=== PATIENT | male | born 1950 | race Hispanic/Latino ===

== ENCOUNTER 2018-12-14 15:56 | Emergency (ER) | payer MEDICARE ==
[2018-12-14] MEDS ORDERED: CLEOCIN PO ONE (18:48)
--- NOTE | 2018-12-14 19:01 | Emergency Department Report ---
HPI - General Chief Complaint: Wound/Laceration Time Seen by Provider: 12/14/18 17:46 - HPI HPI: 68-year-old male presents to the emergency department from dialysis with complaint of elevated blood pressure and lower extremity wounds and redness. The patient presents with some cultures from 12/10/18 from some drainage from his left leg that came back showing moderate gram-positive cocci in pairs, MRSA and beta hemolytic streptococci group B. the patient has a history of end-stage renal disease on hemodialysis on Monday/Monday/Monday, non-insulin dependent diabetes, previous CVA, blindness, hyperlipidemia and hypertension. The patient says that he has "whitecoat syndrome" and anxiety that causes his elevated blood pressure. He says that he takes Catapres as needed and is on labetalol. 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 Morales and his primary care physician is Patel Escobar. ED Past Medical Hx - Past Medical History Previous Medical History?: Yes Hx Hypertension: Yes Hx Heart Attack/AMI: No Hx Congestive Heart Failure: Yes Hx Diabetes: Yes (pill control) Hx Renal Disease: Yes (MON/MON/MON) Additional medical history: Blind - Surgical History Past Surgical History?: Yes Additional Surgical History: fistula placement LEFT Arm - Social History Smoking Status: Never Smoker Substance Use Type: None - Medications Home Medications: Home Medications Medication Instructions Recorded Confirmed Last Taken Type Clopidogrel Bisulfate [Plavix] 75 mg PO DAILY 11/11/13 10/17/16 10/16/16 History 75mg Glimepiride 2 mg PO DAILY 11/11/13 10/17/16 10/16/16 History 2mg Simvastatin 10 mg PO DAILY 11/11/13 10/17/16 10/16/16 History 10mg Torsemide 20 mg PO BID 11/11/13 10/17/16 10/16/16 History 20mg Tramadol HCl 50 mg PO PRN PRN 11/11/13 10/17/16 10/16/16 History 50mg metOLazone [Metolazone] 2.5 mg PO TID 11/11/13 10/17/16 10/16/16 History 2.5mg Labetalol HCl [Trandate TAB] 300 mg PO BID 12/16/13 10/17/16 10/16/16 History 300mg Albuterol Sulfate [Proair Hfa] 2 puff INHALATION QID 12/18/13 10/17/16 10/16/16 History 2 Ergocalciferol [Vitamin D2] 50,000 unit PO 2XW 12/18/13 10/17/16 10/16/16 History 43438 units Omeprazole 20 mg PO BID 12/18/13 10/17/16 10/16/16 History 20mg Clindamycin [Clindamycin CAP] 300 mg PO Q6H #28 capsule 12/14/18 Unknown Rx ED Review of Systems ROS: Stated complaint: MRSA INFECTION Other details as noted in HPI Comment: All other systems reviewed and negative Constitutional: denies: chills, fever Eyes: denies: eye pain, eye discharge ENT: denies: ear pain, throat pain Respiratory: denies: cough, shortness of breath Cardiovascular: denies: chest pain, palpitations Gastrointestinal: denies: abdominal pain, vomiting Genitourinary: denies: dysuria, discharge Musculoskeletal: denies: back pain, arthralgia Skin: rash, lesions Neurological: denies: headache, weakness Physical Exam - Physical Exam Vital Signs: Vital Signs 12/14/18 12/14/18 12/14/18 17:50 17:52 18:15 Pulse Rate 85 86 Respiratory 18 Rate Blood Pressure 199/78 218/80 207/73 [Right] O2 Sat by Pulse 98 Oximetry 12/14/18 18:27 Pulse Rate Respiratory 18 Rate Blood Pressure [Right] O2 Sat by Pulse 98 Oximetry Physical Exam: GENERAL: The patient is well-developed well-nourished. HEENT: Normocephalic. Atraumatic. Patient has moist mucous membranes. NECK: Supple. Trachea is midline. CHEST/LUNGS: Clear to auscultation. There is no respiratory distress noted. HEART/CARDIOVASCULAR: Regular. There is no tachycardia. There is no obvious murmur. ABDOMEN: Abdomen is soft, nontender. Patient has normal bowel sounds. There is no abdominal distention. SKIN: Skin is patient has some erythema and a ulcerated wound to the left distal anterior tib-fib. He also has some mild erythema with small red papules to the same area of the right distal tib-fib. NEURO: The patient is awake, alert, and oriented. The patient is cooperative. The patient has no focal neurologic deficits. The patient has normal speech. MUSCULOSKELETAL: There is no tenderness or deformity. There is no evidence of acute injury. There is a dialysis fistula to the left upper extremity. ED Course Vital Signs 12/14/18 12/14/18 12/14/18 17:50 17:52 18:15 Pulse Rate 85 86 Respiratory 18 Rate Blood Pressure 199/78 218/80 207/73 [Right] O2 Sat by Pulse 98 Oximetry 12/14/18 18:27 Pulse Rate Respiratory 18 Rate Blood Pressure [Right] O2 Sat by Pulse 98 Oximetry ED Medical Decision Making - Medical Decision Making The patient presents from dialysis for evaluation of lower extremity wounds and hypertension. He also presents with some positive wound cultures from 4 days ago that show MRSA and beta lactamase group B. Both of these bacteria appears susceptible to clindamycin. The patient says that he has a history of hypertension and his blood pressure will usually come down when he treats his anxiety. He took one of his own lorazepam and did remain awake and alert but his blood pressure did come down to a more reasonable level. He is still due to take his labetalol this evening. The patient would not allow an IV to be placed and would not allow any blood to be drawn. He has had some recent blood work done through dialysis. Patient did not have any fever or tachycardia and appears lower suspicion for any systemic infection. Patient will be given a prescription for the clindamycin and has been given a referral for wound care. We discussed the reasons and/or symptoms for which she should return to emergency department immediately. He understands and agrees to the plan. - Differential Diagnosis cellulitis, abscess, ulcer Critical Care Time: No Critical care attestation.: If time is entered above; I have spent that time in minutes in the direct care of this critically ill patient, excluding procedure time. ED Disposition Clinical Impression: MRSA cellulitis, ESRD (end stage renal disease) on dialysis HTN (hypertension) Qualifiers: Hypertension type: essential hypertension Qualified Code(s): I10 - Essential (primary) hypertension Disposition: - TO HOME OR SELFCARE Is pt being admited?: No Condition: Stable Instructions: Methicillin Resistant Staphylococcus Aureus (ED), Cellulitis (ED), Hypertension (ED) Additional Instructions: Please follow-up with your primary care physician in the next few days. Continue with your normal dialysis regimen. I have given you a referral for the local wound care clinic. Take the antibiotics as prescribed. Return to the emergency Department with any worsening of your symptoms, development of a fever, worsening of the infection, or any acute distress. Prescriptions: Clindamycin [Clindamycin CAP] 300 mg PO Q6H #28 capsule Referrals: [facility] [Outside] - [facility] PATEL PINEDO JR, MD [Staff Physician] - 2-3 Days KAYLENE MORALES MD [Staff Physician] - 2-3 Days
[2018-12-14 19:30] VITALS: BP 180/70
== END 2018-12-14 19:45 | disposition home or self-care (01) ==
LOC: ED 15:56
DX: L03.116 Cellulitis of left lower limb (principal); A49.02 Methicillin resistant Staphylococcus aureus infection, unspecified site; E11.22 Type 2 diabetes mellitus with diabetic chronic kidney disease; I13.2 Hypertensive heart and chronic kidney disease with heart failure and with stage 5 chronic kidney disease, or end stage renal disease; I50.9 Heart failure, unspecified; N18.6 End stage renal disease; Z99.2 Dependence on renal dialysis

== ENCOUNTER 2019-01-14 17:10 | Inpatient (IN) | payer MEDICARE ==
[2019-01-14 19:26] LABS: Basophils # (Auto) 0.1 K/mm3 (0.0-0.1); Basophils % (Auto) 1.5 % (0.0-1.8); Eosinophils # (Auto) 0.2 K/mm3 (0.0-0.4); Eosinophils % (Auto) 3.2 % (0.0-4.3); Hematocrit 34.8 % (35.5-45.6); Hemoglobin 11.4 gm/dl (11.8-15.2); Lymphocytes # (Auto) 1.2 K/mm3 (1.2-5.4); Lymphocytes % (Auto) 16.6 % (13.4-35.0); Mean Corpuscular HGB Conc 33 % (32-34); Mean Corpuscular Volume 87 fl (84-94); Monocytes # (Auto) 0.6 K/mm3 (0.0-0.8); Monocytes % (Auto) 8.7 % (0.0-7.3); Platelet Count 170 K/mm3 (140-440); Red Blood Count 4.01 M/mm3 (3.65-5.03); Red Cell Distribution Width 15.4 % (13.2-15.2)
[2019-01-14 19:47] LABS: Calcium 9.2 mg/dL (8.4-10.2)
[2019-01-14 21:34] LABS: INR 0.98 (0.87-1.13)
[2019-01-14 21:35] LABS: Partial Thromboplastin Time 31.9 Sec. (24.2-36.6); Thrombin Time 16.1 Sec. (15.1-19.6)
--- NOTE | 2019-01-14 22:10 | Cat Scan Report ---
PROCEDURE: CT HEAD/BRAIN WO CON TECHNIQUE: Computerized tomography of the head was performed without contrast material. CT DOSE LENGTH PRODUCT: mGycm HISTORY: right sided weakness/numb x 6 days COMPARISONS: None . FINDINGS: Skull and scalp: Normal . Paranasal sinuses: Normal . Ventricles and subarachnoid spaces: There is mild central and cortical atrophy. There is no hydrocep halus or asymmetry. . Cerebrum: No evidence of hemorrhage, acute infarction or mass . There is an old left thalamic infarc t. There is chronic deep white matter ischemic gliosis. Cerebellum and brainstem: No evidence of hemorrhage, acute infarction or mass . There is an old lacu roosevelt infarct defect in the citlalli. Vasculature: Normal . Left globe is atrophic and calcified. IMPRESSION: There is mild central and cortical atrophy. There is no hydrocephalus or asymmetry. . There is an old left thalamic infarct. There is chronic deep white matter ischemic gliosis. There is an old lacunar infarct defect in the citlalli. There is no hemorrhage, edema, mass, mass effect or midline shift. There is no evidence of acute infa rction. This document is electronically signed by Sherman Randall MD., January 14 2019 10:08:04 PM ET
--- NOTE | 2019-01-14 22:45 | Cat Scan Report ---
PROCEDURE: CT CERVICAL SPINE WO CON TECHNIQUE: Computerized tomography of the cervical spine was performed from the skull base to T1 wit hout contrast material. CT DOSE LENGTH PRODUCT: mGycm HISTORY: rigth sided weakness/numb x 6 days COMPARISONS: None . FINDINGS: Skull base and foramen magnum are intact. C1-2: No significant abnormality . C2-3: No significant abnormality . C3-4: No significant abnormality . C4-5: No significant abnormality . C5-6: No significant abnormality . C6-7: There is narrowing of the disc space. . C7-T1: No significant abnormality . Fractures: None . Other: Soft tissues are unremarkable. . IMPRESSION: There is no acute traumatic injury. . This document is electronically signed by Sherman Randall MD., January 14 2019 10:44:08 PM ET
--- NOTE | 2019-01-15 00:31 | Emergency Department Report ---
ED Neuro Deficit HPI - General Chief Complaint: Hypoglycemia Stated Complaint: LOW BLOOD SUGAR Time Seen by Provider: 01/14/19 19:33 Source: patient, EMS, old records reviewed Mode of arrival: Stretcher Limitations: No Limitations - History of Present Illness Initial Comments: 68-year-old male with a past medical history of end-stage medicine is currently on dialysis, diabetes (glimepiride every morning), hypertension, blind, and multiple CVAs/TIAs in the past persistent hospital with hypoglycemia in stroke symptoms. Patient developed hypoglycemia after completion of his dialysis with Accu-Chek of 47. Given oral glucose with improvement. Patient states he typically does not eat prior to dialysis but his glucose doesn't typically drop. Patient has history of multiple CVAs in the denies residual deficits. Since October 11 (5 days ago) patient has had right sided weakness and numbness to the point where he is unable to ambulate. Pt has had several falls since onset. He was concerned about a stroke that did not come to the hospital. His family members state that his speech is pretty much the same. Patient denies pain, fever, or shortness of breath. Delivery And Installation Subcontractor: Dr. Morales PMD: DR Hou - Related Data Home Medications: Home Medications Medication Instructions Recorded Confirmed Last Taken Clopidogrel Bisulfate [Plavix] 75 mg PO DAILY 11/11/13 10/17/16 10/16/16 75mg Glimepiride 2 mg PO DAILY 11/11/13 10/17/16 10/16/16 2mg Simvastatin 10 mg PO DAILY 11/11/13 10/17/16 10/16/16 10mg Torsemide 20 mg PO BID 11/11/13 10/17/16 10/16/16 20mg Tramadol HCl 50 mg PO PRN PRN 11/11/13 10/17/16 10/16/16 50mg metOLazone [Metolazone] 2.5 mg PO TID 11/11/13 10/17/16 10/16/16 2.5mg Labetalol HCl [Trandate TAB] 300 mg PO BID 12/16/13 10/17/16 10/16/16 300mg Albuterol Sulfate [Proair Hfa] 2 puff INHALATION QID 12/18/13 10/17/16 10/16/16 2 Ergocalciferol [Vitamin D2] 50,000 unit PO 2XW 12/18/13 10/17/16 10/16/16 72652 units Omeprazole 20 mg PO BID 12/18/13 10/17/16 10/16/16 20mg ALPRAZolam [Xanax] 1 mg PO 01/15/19 Unknown Calcium Carbonate 500 mg 01/15/19 Unknown Clopidogrel [Plavix] 01/15/19 Unknown Zolpidem [Ambien] 10 mg PO QHS 01/15/19 01/15/19 Unknown Allergies/Adverse Reactions: Allergies Allergy/AdvReac Type Severity Reaction Status Date / Time No Known Allergies Allergy Verified 11/12/13 07:33 ED Review of Systems ROS: Stated complaint: LOW BLOOD SUGAR Other details as noted in HPI Comment: All other systems reviewed and negative ED Past Medical Hx - Past Medical History Hx Hypertension: Yes Hx Heart Attack/AMI: No Hx Congestive Heart Failure: Yes Hx Diabetes: Yes (pill control) Hx Renal Disease: Yes (MON/WED/FRI) Additional medical history: Blind - Surgical History Additional Surgical History: fistula placement LEFT Arm - Social History Smoking Status: Never Smoker Substance Use Type: None - Medications Home Medications: Home Medications Medication Instructions Recorded Confirmed Last Taken Type Clopidogrel Bisulfate [Plavix] 75 mg PO DAILY 11/11/13 10/17/16 10/16/16 History 75mg Glimepiride 2 mg PO DAILY 11/11/13 10/17/16 10/16/16 History 2mg Simvastatin 10 mg PO DAILY 11/11/13 10/17/16 10/16/16 History 10mg Torsemide 20 mg PO BID 11/11/13 10/17/16 10/16/16 History 20mg Tramadol HCl 50 mg PO PRN PRN 11/11/13 10/17/16 10/16/16 History 50mg metOLazone [Metolazone] 2.5 mg PO TID 11/11/13 10/17/16 10/16/16 History 2.5mg Labetalol HCl [Trandate TAB] 300 mg PO BID 12/16/13 10/17/16 10/16/16 History 300mg Albuterol Sulfate [Proair Hfa] 2 puff INHALATION QID 12/18/13 10/17/16 10/16/16 History 2 Ergocalciferol [Vitamin D2] 50,000 unit PO 2XW 12/18/13 10/17/16 10/16/16 History 69255 units Omeprazole 20 mg PO BID 12/18/13 10/17/16 10/16/16 History 20mg ALPRAZolam [Xanax] 1 mg PO 01/15/19 Unknown History Calcium Carbonate 500 mg 01/15/19 Unknown History Clopidogrel [Plavix] 01/15/19 Unknown History Zolpidem [Ambien] 10 mg PO QHS 01/15/19 01/15/19 Unknown History ED Neuro Physical Exam - General Limitations: No Limitations General appearance: alert Suspected Stroke: Yes - NIHSS Assessment Interval: Baseline 1a. Level of Consciousness: alert/keenly responsive 1b. LOC Questions: answers both correctly 1c. LOC Commands: performs tasks correctly 2. Best Gaze: normal (blind) 3. Visual: bilateral hemianopia (blind chronic) 4. Facial Palsy: normal symmetrical movement 5b. Motor Arm Right: drift 5a. Motor Arm Left: no drift 6a. Motor Leg Left: drift 6b. Motor Leg Right: some gravity effort 7. Limb Ataxia: absent 8. Sensory: mild/moderate sensory loss (decreased right arm and leg) 9. Best Language: no aphasia 10. Dysarthria: normal 11. Extinction/Inattention: no abnormality Total Score: 8 Stroke Severity: Moderate Stroke - Other Other exam information: General: No limitations, patient is alert in no acute distress Head exam: Atraumatic, normocephalic Eyes exam: blind ENT: Moist mucous membrane, normal oropharynx Neck exam: Normal inspection, full range of motion, no meningismus nontender Respiratory exam: Clear to auscultation bilateral, no wheezes, rales, crackles Cardiovascular: Normal rate and rhythm Abdomen: Soft, nondistended, and nontender, with normal bowel sounds, no rebound, or guarding Extremity: Full range of motion normal inspection no deformity, left arm dialysis access with + thrill Back: Normal Inspection, full range of motion, no tenderness Neurologic: Alert, oriented x3, see NIHSS Psychiatric: normal affect, normal mood Skin: Warm, dry, intact ED Course Vital Signs 01/14/19 01/14/19 01/14/19 18:20 18:24 18:30 Temperature 98.1 F Pulse Rate 66 Respiratory 18 Rate Blood Pressure 201/63 201/63 O2 Sat by Pulse 98 98 99 Oximetry 01/14/19 01/14/19 01/14/19 18:46 19:00 19:16 Temperature Pulse Rate Respiratory Rate Blood Pressure 210/68 175/68 195/72 O2 Sat by Pulse 99 99 96 Oximetry 01/14/19 01/14/19 01/14/19 19:30 19:45 19:53 Temperature Pulse Rate 64 Respiratory 16 20 Rate Blood Pressure 136/76 200/70 O2 Sat by Pulse 98 100 98 Oximetry - Consultations Consultation #1: 01/15/19 00:[address] Morales (not discussed with him). stable nephro status at this time. - Lab Data Result diagrams: 01/14/19 19:16 01/14/19 19:16 Lab Results 01/14/19 01/14/19 01/14/19 Range/Units 18:38 19:16 19:16 WBC 7.3 (4.5-11.0) K/mm3 RBC 4.01 (3.65-5.03) M/mm3 Hgb 11.4 L (11.8-15.2) gm/dl Hct 34.8 L (35.5-45.6) % MCV 87 (84-94) fl MCH 28 (28-32) pg MCHC 33 (32-34) % RDW 15.4 H (13.2-15.2) % Plt Count 170 (140-440) K/mm3 Lymph % (Auto) 16.6 (13.4-35.0) % [place] % (Auto) 8.7 H (0.0-7.3) % Eos % (Auto) 3.2 (0.0-4.3) % Baso % (Auto) 1.5 (0.0-1.8) % Lymph # 1.2 (1.2-5.4) K/mm3 [place] # 0.6 (0.0-0.8) K/mm3 Eos # 0.2 (0.0-0.4) K/mm3 Baso # 0.1 (0.0-0.1) K/mm3 Seg Neutrophils % 70.0 (40.0-70.0) % Seg Neutrophils # 5.1 (1.8-7.7) K/mm3 PT (12.2-14.9) Sec. INR (0.87-1.13) APTT (24.2-36.6) Sec. Thrombin Time (15.1-19.6) Sec. Sodium 141 (137-145) mmol/L Potassium 3.9 (3.6-5.0) mmol/L Chloride 97.9 L (98-107) mmol/L Carbon Dioxide 30 (22-30) mmol/L Anion Gap 17 mmol/L BUN 19 (9-20) mg/dL Creatinine 5.2 H (0.8-1.5) mg/dL Estimated GFR 11 ml/min BUN/Creatinine Ratio 4 % Glucose 120 H (75-100) mg/dL POC Glucose 131 H (70-105) Calcium 9.2 (8.4-10.2) mg/dL 01/14/19 01/14/19 Range/Units 21:09 21:13 WBC (4.5-11.0) K/mm3 RBC (3.65-5.03) M/mm3 Hgb (11.8-15.2) gm/dl Hct (35.5-45.6) % MCV (84-94) fl MCH (28-32) pg MCHC (32-34) % RDW (13.2-15.2) % Plt Count (140-440) K/mm3 Lymph % (Auto) (13.4-35.0) % [place] % (Auto) (0.0-7.3) % Eos % (Auto) (0.0-4.3) % Baso % (Auto) (0.0-1.8) % Lymph # (1.2-5.4) K/mm3 [place] # (0.0-0.8) K/mm3 Eos # (0.0-0.4) K/mm3 Baso # (0.0-0.1) K/mm3 Seg Neutrophils % (40.0-70.0) % Seg Neutrophils # (1.8-7.7) K/mm3 PT 13.6 (12.2-14.9) Sec. INR 0.98 (0.87-1.13) APTT 31.9 (24.2-36.6) Sec. Thrombin Time 16.1 (15.1-19.6) Sec. Sodium (137-145) mmol/L Potassium (3.6-5.0) mmol/L Chloride (98-107) mmol/L Carbon Dioxide (22-30) mmol/L Anion Gap mmol/L BUN (9-20) mg/dL Creatinine (0.8-1.5) mg/dL Estimated GFR ml/min BUN/Creatinine Ratio % Glucose (75-100) mg/dL POC Glucose 191 H (70-105) Calcium (8.4-10.2) mg/dL - EKG Data -: EKG Interpreted by Ga EKG shows normal: sinus rhythm, axis (qrs 21), QRS complexes (qrsd 95), ST-T waves (no stei/t inv) Rate: normal (66) - Radiology Data Radiology results: report reviewed PROCEDURE: CT CERVICAL SPINE WO CON TECHNIQUE: Computerized tomography of the cervical spine was performed from the skull base to T1 without contrast material. CT DOSE LENGTH PRODUCT: mGycm HISTORY: rigth sided weakness/numb x 6 days COMPARISONS: None . FINDINGS: Skull base and foramen magnum are intact. C1-2: No significant abnormality . C2-3: No significant abnormality . C3-4: No significant abnormality . C4-5: No significant abnormality . C5-6: No significant abnormality . C6-7: There is narrowing of the disc space. . C7-T1: No significant abnormality . Fractures: None . Other: Soft tissues are unremarkable. . IMPRESSION: There is no acute traumatic injury. . PROCEDURE: CT HEAD/BRAIN WO CON TECHNIQUE: Computerized tomography of the head was performed without contrast material. CT DOSE LENGTH PRODUCT: mGycm HISTORY: right sided weakness/numb x 6 days COMPARISONS: None . FINDINGS: Skull and scalp: Normal . Paranasal sinuses: Normal . Ventricles and subarachnoid spaces: There is mild central and cortical atrophy. There is no hydrocephalus or asymmetry. . Cerebrum: No evidence of hemorrhage, acute infarction or mass . There is an old left thalamic infarct. There is chronic deep white matter ischemic gliosis. Cerebellum and brainstem: No evidence of hemorrhage, acute infarction or mass . There is an old lacunar infarct defect in the citlalli. Vasculature: Normal . Left globe is atrophic and calcified. IMPRESSION: There is mild central and cortical atrophy. There is no hydrocephalus or asymmetry. . There is an old left thalamic infarct. There is chronic deep white matter ischemic gliosis. There is an old lacunar infarct defect in the citlalli. There is no hemorrhage, edema, mass, mass effect or midline shift. There is no evidence of acute infarction. - Medical Decision Making pt is on plavix at home asa given in ed glucose stable after pt ate with baseline [place] plan to admit to hospitalist for cva workup Nephro consult ordered but renal status stable at this time - Differential Diagnosis ich, stroke, infection, diabetes med reaction Critical Care Time: No Critical care attestation.: If time is entered above; I have spent that time in minutes in the direct care of this critically ill patient, excluding procedure time. ED Disposition Clinical Impression: Right sided weakness, Type II diabetes mellitus, HTN (hypertension), ESRD (end stage renal disease) on dialysis, Hypoglycemic episode in patient with diabetes mellitus Disposition: OP ADMIT IP TO THIS HOSP Is pt being admited?: Yes Condition: Stable Instructions: Hypertension (ED) Time of Disposition: 00:33 (Dr Ricardo/hosp)
[2019-01-15] MEDS ORDERED: ASPIRIN PO ONE (01:01)
[2019-01-15] MEDS ORDERED: ZOFRAN IV PRN (04:11)
--- NOTE | 2019-01-15 05:03 | History and Physical Report ---
CHIEF COMPLAINT: Right-sided weakness and also right-sided numbness. HISTORY OF PRESENT ILLNESS: The patient is a 68-year-old male with past medical history of blindness, diabetes mellitus, hypertension, end-stage renal disease, on dialysis. cerebrovascular accident and TIAs, presenting with right-sided weakness and difficulty with ambulation. The patient stated that he started having these symptoms 6 days prior to presentation and did not come to the hospital. The patient developed low blood sugar prior to having dialysis and was also feeling weak with numbness on the right side and was sent over for evaluation. There is no history of chest pain. No history of shortness of breath. No history of dizziness. PAST MEDICAL HISTORY: Pertinent for hypertension, congestive heart failure, diabetes mellitus, end-stage renal disease, on dialysis, blindness. PAST SURGICAL HISTORY: Pertinent for dialysis, fistula placement on the left upper extremity. FAMILY HISTORY: Noncontributory. SOCIAL HISTORY: The patient does not smoke, does not drink alcohol and does not use illicit drugs. MEDICATIONS: The patient is on albuterol inhaler 2 puffs q.i.d. Also, the patient is on alprazolam 1 mg by mouth, frequency unknown. The patient is on calcium carbonate 500 mg by mouth, frequency unknown, clopidogrel 75 mg by mouth daily, ergocalciferol 50,000 units by mouth twice daily. The patient is also on glimepiride 2 mg by mouth daily, labetalol 300 mg by mouth twice daily as well as metolazone 2.5 mg by mouth 3 times daily, omeprazole 20 mg by mouth twice daily, simvastatin 20 mg by mouth daily. The patient is also on torsemide 20 mg by mouth twice daily, tramadol 50 mg by mouth as needed, zolpidem 10 mg by mouth every night as needed for insomnia. ALLERGIES: There are no known drug allergies. REVIEW OF SYSTEMS: CONSTITUTIONAL: There is no fever, no chills, no diaphoresis. HEENT: There is no headache or sore throat. CARDIOVASCULAR SYSTEM: There is no chest pain or orthopnea. RESPIRATORY SYSTEM: There is no shortness of breath or cough. GASTROINTESTINAL SYSTEM: There is no nausea, no vomiting, no abdominal pain, diarrhea or constipation. NEUROLOGIC: Right-sided weakness and numbness noted. No dizziness. No altered mental status. MUSCULOSKELETAL SYSTEM: There is no joint pain or swelling. DERMATOLOGICAL SYSTEM: There is no skin rash or itching. GENITOURINARY SYSTEM: There is history of dysuria, but no hematuria or flank pain. Rest of system review is normal. PHYSICAL EXAMINATION: GENERAL: At the time of exam, the patient was found to be alert, oriented x 3, and not in acute distress. VITAL SIGNS: Shows temperature of 98.1 degrees Fahrenheit, pulse of 66, respirations 18, blood pressure initially was registered as 201/63, and subsequently, blood pressure went down to as low as 136/76. HEENT: Showed pupils to be equal, round, reactive to light and accommodating. Extraocular muscles are intact. NECK: Supple with no JVD or carotid bruit. CARDIOVASCULAR: Showed normal first and second heart sounds with no gallops or murmurs. RESPIRATORY SYSTEM: Show good air entry on both sides of the lungs with no abnormal breath sounds. GASTROINTESTINAL SYSTEM: Show abdomen to be full, soft, nontender with no organomegaly or rigidity. NEUROLOGICAL: Shows weakness of the right upper and lower limbs with muscle strength of grade 3/6 on the right grade 5/6 on the left. Sensory function is intact. MUSCULOSKELETAL SYSTEM: Show no joint swelling or tenderness. DERMATOLOGICAL SYSTEM: Show no skin rash. GENITOURINARY SYSTEM: Showing no costovertebral angle tenderness. PERTINENT LABORATORY DATA AND IMAGING STUDIES: The patient had CT of the cervical spine done that shows no acute lesion and the patient's CT of the head without contrast shows mild central and cortical atrophy with no hydrocephalus or any asymmetry. There is finding of old thalamic infarct and also finding of chronic deep white matter ischemic gliosis. There is also finding of an old lacunar infarct in the citlalli, but there is no hemorrhage, edema, mass effect, or midline shift and there is no evidence of any acute infarction. Lab results, the patient has CBC done with slightly decreased hemoglobin of 11.4 and a slightly decreased hematocrit of 34.8 with normal MCV with CBC differential showing elevated monocyte count of 8.7%. The patient's coagulation studies were unremarkable and chemistry show elevated creatinine of 5.2 with normal BUN, which is consistent with the patient's end-stage renal disease, on dialysis. Rest of chemistry was unremarkable. DIAGNOSES: 1. Right-sided weakness and numbness. 2. End-stage renal disease, on dialysis. PLAN OF CARE: 1. The patient will be admitted to telemetry. 2. The patient will have MRI of the brain without contrast done this morning. 3. The patient will have bilateral carotid Doppler done this morning as well as 2D echo done this morning. 4. The patient will continue the nephrology consult with Dr. Morales requested by the Emergency Room physician and will have Neurology consult with Dr. Amilcar Abdullahi this morning because of right-sided weakness. 5. The patient will be on sequential compressive device as per DVT prophylaxis and will be n.p.o. until swallow test is passed. 6. The patient will have physical therapy consult for evaluation and treatment. 7. The patient will be on aspirin 325 mg by mouth daily and will be on IV Zofran 4 mg every 8 hours for nausea and vomiting as well as Tylenol 650 mg by mouth every 4 hours for fever and headache. JOB# [id number] OCN/NTS
--- NOTE | 2019-01-15 10:09 | Magnetic Resonance Report ---
MRI OF THE BRAIN WITHOUT CONTRAST: HISTORY: Right sided weakness PROCEDURE: Multiplanar, multisequence MR imaging of the brain without IV contrast was performed. FINDINGS: Compared to a CT head dated 01/14/19. MRI demonstrates a 5 mm focus of diffusion restriction in the left side of the citlalli on diffusion image 11. No additional areas of diffusion restriction are identified. Mild diffuse volume loss and moderate nonspecific chronic white matter changes are identified. Chronic lacunar infarcts in the lateral left thalamus and 3 tiny chronic lacunar infarcts in the citlalli are also noted. No evidence for hemorrhage, mass or extra axial fluid collection. The midline structures are central. The basal cisterns are patent. Normal ventricular size. No sellar abnormality is detected. The left eye is atrophic. Orbital contents are within normal limits otherwise. The visualized paranasal sinuses and mastoid air cells are well aerated. IMPRESSION: 5 mm subacute lacunar infarct in the left citlalli. Chronic findings as outlined above.
--- NOTE | 2019-01-15 10:26 | Consultation ---
History of Present Illness - Reason for Consult Consult date: 01/15/19 end stage renal disease - History of Present Illness Very pleasant 68-year-old male well known to us at our dialysis clinic who hasn't past medical history significant for end-stage renal disease in the setting of diabetes hypertension who has been on chronic hemodialysis for the past 5 years who currently dialyzes at the [facility], presented to the emergency department with right-sided weakness that had been progressively getting worse over the past 4-5 days. He was brought in by his grandson who had noticed the symptoms of the right-sided weakness. Patient underwent a CT scan of the head as well as CT scan of the C-spine without any acute abnormalities noted. It it shows evidence of previous and old infarcts. Patient typically dialyzes on a Monday and Monday schedule. His last hemodialysis session was Monday. Labs noted and there is no acute necessity for hemodialysis today. He just came back from an echocardiogram and we are pending reports at this time. He still states that he has the residual right-sided weakness with only mild improvement since admission. Despite this he is adamant that he wants to go home later today. Past History Past Medical History: diabetes, ESRD, heart failure, hypertension, hyperlipidemia Past Surgical History: Other (left upper extremity AV fistula placement. ) Social history: no significant social history, lives with family Family history: diabetes, hypertension Medications and Allergies Allergies Allergy/AdvReac Type Severity Reaction Status Date / Time No Known Allergies Allergy Verified 11/12/13 07:33 Home Medications Medication Instructions Recorded Confirmed Last Taken Type Clopidogrel Bisulfate [Plavix] 75 mg PO DAILY 11/11/13 10/17/16 10/16/16 History 75mg Glimepiride 2 mg PO DAILY 11/11/13 10/17/16 10/16/16 History 2mg Simvastatin 20 mg PO DAILY 11/11/13 10/17/16 10/16/16 History 10mg Torsemide 20 mg PO BID 11/11/13 01/15/19 10/16/16 History 20mg Tramadol HCl 50 mg PO PRN PRN 11/11/13 10/17/16 10/16/16 History 50mg metOLazone [Metolazone] 2.5 mg PO TID 01/13/14 12/19/16 12/18/16 History 2.5mg Labetalol HCl [Trandate TAB] 300 mg PO BID 12/16/13 01/15/19 10/16/16 History 300mg Albuterol Sulfate [Proair Hfa] 2 puff INHALATION QID 12/18/13 10/17/16 10/16/16 History 2 Ergocalciferol [Vitamin D2] 50,000 unit PO 2XW 12/18/13 01/15/19 10/16/16 History 81868 units Omeprazole 20 mg PO BID 12/18/13 10/17/16 10/16/16 History 20mg ALPRAZolam [Xanax] 1 mg PO 01/15/19 Unknown History Calcium Carbonate 500 mg 01/15/19 Unknown History Clopidogrel [Plavix] 01/15/19 Unknown History Zolpidem [Ambien] 10 mg PO QHS 01/15/19 01/15/19 Unknown History Active Meds: Active Medications Acetaminophen (Tylenol) 650 mg PO Q4H PRN PRN Reason: Pain, Mild (1-3) Alprazolam (Xanax) 0.5 mg PO NOW ONE Stop: 01/15/19 11:01 Aspirin (Aspirin) 325 mg PO QDAY JIE Ondansetron HCl (Zofran) 4 mg IV Q8H PRN PRN Reason: Nausea And Vomiting Review of Systems All systems: negative Constitutional: fatigue, weakness Neurological: numbness Exam - Vital Signs Vital signs: Vital Signs Pulse Ox 98 01/14/19 18:20 - General Appearance General appearance: well-nourished, appears stated age EENT: ATNC Neck: Present: neck supple, trachea midline Respiratory: Clear to Ascultation, Normal Exam Heart: regular, S1S2 Gastrointestinal: Present: normal, normoactive bowel sounds Integumentary: warm and dry Neurologic: upper extremity weakness Psychiatric: mood/affect appropriate, cooperative Results - Lab Results 01/14/19 19:16 01/14/19 19:16 Most recent lab results Calcium 9.2 mg/dL (8.4-10.2) 01/14/19 19:16 Assessment and Plan - Patient Problems (1) ESRD (end stage renal disease) on dialysis Current Visit: Yes Status: Chronic Plan to address problem: We'll continue patient on Monday and Monday hemodialysis schedule. No acute indications for hemodialysis today. (2) Right sided weakness Current Visit: Yes Status: Acute Plan to address problem: CT scan of the head as well as CT scan of the C-spine noted. Echocardiogram was done this morning and report is pending. Will follow-up with results. (3) HTN (hypertension) Current Visit: Yes Status: Chronic Plan to address problem: Continue patient on current home regimen and will continue to monitor. (4) Type II diabetes mellitus Current Visit: Yes Status: Chronic Plan to address problem: Diabetes management per primary team. (5) Secondary hyperparathyroidism (of renal origin) Current Visit: Yes Status: Chronic Plan to address problem: There have patient continue home phosphate binder regimen. (6) Anemia in CKD (chronic kidney disease) Current Visit: Yes Status: Chronic Qualifiers: Chronic kidney disease stage: on chronic dialysis Qualified Code(s): N18.6 - End stage renal disease; D63.1 - Anemia in chronic kidney disease; Z99.2 - Dependence on renal dialysis Plan to address problem: Current hemoglobin levels are at goal. There is no acute needs for NED therapy at this time. We'll continue to monitor
[2019-01-15] MEDS: ASPIRIN PO SCH (10:54)
[2019-01-15] MEDS ORDERED: XANAX PO ONE (11:00)
--- NOTE | 2019-01-15 11:57 | Progress Note ---
Assessment and Plan Assessment and plan: Acute/subacute CVA. Continue CVA protocol. MRI reveals 5 mm subacute lacunar infarct in the left citlalli. Echocardiogram reveals mild concentric left ventricular hypertrophy with an EF of 50-55%. No reports of thrombus. Neurology consultation pending. Hypertension. Continue antihypertensive medications. Diabetes mellitus type 2. Continue Accu-Cheks and sliding scale as well. Anemia of CKD. Current hemoglobin levels are at goal. There is no acute needs for NED therapy at this time. We'll continue to monitor History Interval history: Patient reports improvement in his right-sided weakness. No new complaints. Hospitalist Physical - Constitutional Vitals: Temp Pulse Resp BP Pulse Ox 98.2 F 73 20 172/61 91 01/15/19 11:24 01/15/19 11:24 01/15/19 11:24 01/15/19 11:24 01/15/19 11:24 General appearance: Present: no acute distress, well-nourished - EENT Eyes: Present: PERRL, EOM intact ENT: hearing intact, clear oral mucosa, dentition normal - Neck Neck: Present: supple, normal ROM - Respiratory Respiratory effort: normal Respiratory: bilateral: CTA - Cardiovascular Rhythm: regular Heart Sounds: Present: S1 & S2. Absent: gallop, rub - Extremities Extremities: no ischemia, No edema, Full ROM - Abdominal General gastrointestinal: soft, non-tender, non-distended, normal bowel sounds - Integumentary Integumentary: Present: clear, warm, dry - Neurologic Neurologic: CNII-XII intact, moves all extremities Results - Labs CBC & Chem 7: 01/14/19 19:16 01/14/19 19:16 Labs: Laboratory Last Values WBC 7.3 K/mm3 (4.5-11.0) 01/14/19 19:16 RBC 4.01 M/mm3 (3.65-5.03) 01/14/19 19:16 Hgb 11.4 gm/dl (11.8-15.2) L 01/14/19 19:16 Hct 34.8 % (35.5-45.6) L 01/14/19 19:16 MCV 87 fl (84-94) 01/14/19 19:16 MCH 28 pg (28-32) 01/14/19 19:16 MCHC 33 % (32-34) 03/18/19 19:16 RDW 15.4 % (13.2-15.2) H 01/14/19 19:16 Plt Count 170 K/mm3 (140-440) 01/14/19 19:16 Lymph % (Auto) 16.6 % (13.4-35.0) 01/14/19 19:16 [place] % (Auto) 8.7 % (0.0-7.3) H 01/14/19 19:16 Eos % (Auto) 3.2 % (0.0-4.3) 01/14/19 19:16 Baso % (Auto) 1.5 % (0.0-1.8) 01/14/19 19:16 Lymph # 1.2 K/mm3 (1.2-5.4) 01/14/19 19:16 [place] # 0.6 K/mm3 (0.0-0.8) 01/14/19 19:16 Eos # 0.2 K/mm3 (0.0-0.4) 01/14/19 19:16 Baso # 0.1 K/mm3 (0.0-0.1) 01/14/19 19:16 Seg Neutrophils % 70.0 % (40.0-70.0) 01/14/19 19:16 Seg Neutrophils # 5.1 K/mm3 (1.8-7.7) 01/14/19 19:16 PT 13.6 Sec. (12.2-14.9) 01/14/19 21:09 INR 0.98 (0.87-1.13) 01/14/19 21:09 APTT 31.9 Sec. (24.2-36.6) 01/14/19 21:09 Thrombin Time 16.1 Sec. (15.1-19.6) 01/14/19 21:09 Sodium 141 mmol/L (137-145) 01/14/19 19:16 Potassium 3.9 mmol/L (3.6-5.0) 01/14/19 19:16 Chloride 97.9 mmol/L (98-107) L 01/14/19 19:16 Carbon Dioxide 30 mmol/L (22-30) 01/14/19 19:16 Anion Gap 17 mmol/L 01/14/19 19:16 BUN 19 mg/dL (9-20) 01/14/19 19:16 Creatinine 5.2 mg/dL (0.8-1.5) H 01/14/19 19:16 Estimated GFR 11 ml/min 01/14/19 19:16 BUN/Creatinine Ratio 4 % 01/14/19 19:16 Glucose 120 mg/dL (75-100) H 01/14/19 19:16 POC Glucose 82 (70-105) 01/15/19 08:07 Calcium 9.2 mg/dL (8.4-10.2) 01/14/19 19:16 Active Medications - Current Medications Current Medications: Generic Name Dose Route Start Last Admin Trade Name Freq PRN Reason Stop Dose Admin Acetaminophen 650 mg 01/15/19 04:11 Tylenol PO Q4H PRN Pain, Mild (1-3) Aspirin 325 mg 01/15/19 10:00 01/15/19 10:54 Aspirin PO Not Given QDAY [facility] Ondansetron HCl 4 mg 01/15/19 04:11 Zofran IV Q8H PRN Nausea And Vomiting
[2019-01-15] MEDS: PRAVACHOL PO SCH (21:15)
--- NOTE | 2019-01-15 21:15 | Consultation ---
History of Present Illness Consult date: 01/15/19 Requesting physician: DENISE FORD Reason for Consult: right sided weakness Chief complaint: right sided weakness History of present illness: This 68-year-old white male had noted right sided weakness for a week and perhaps starting with an episode of glucose of 47. He had tingling and numbness of his right face, arm and leg starting last Monday then fell getting out of his shower 2 nights ago. He has no vision in either eye, with scarring on the left and failed attempt at some type of stents on the right. No trouble swallowing with recurrent symptoms but notes he has to talk out of the left side of his mouth. He has not been checking his blood pressure at home. He has been on labetalol 300 mg twice a day which he has not been getting here. He has been told to take clonidine as needed for spikes of blood pressure which he does if he gets watering of his eyes. Blood pressure here has been high. MRI showed punctate left dorsal citlalli infarct on diffusion and on ADC map, no Chiari, GRE changes in the mid citlalli, holes and increased FLAIR signal in the citlalli from old strokes, old right cerebellar lacune as a dark spot on FLAIR, periventricular increased FLAIR signal and peripheral lacunes. Literature in PubMed indicates one can get diffusion positive changes with apparent stroke-type symptoms just from low glucose though it is unclear as to how quickly that would reverse itself. Echocardiogram is limited in terms of the bubble study so PFO cannot be ruled out. Past History Past Medical History: diabetes, ESRD, heart failure, hypertension, hyperlipidemia, stroke, sarcoidosis (says he is had 3 strokes in the past), ot her (injury hitting his head on the side glass of his car window in 2009 leading to left eye injury and delayed right eye injury) Past Surgical History: Other (left upper extremity AV fistula placement. 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 denies: smoking, alcohol abuse, prescription drug abuse, IV drug use Family history: diabetes (maternal grandmother), hypertension, other (no epilepsy). denies: stroke Medications and Allergies Allergies Allergy/AdvReac Type Severity Reaction Status Date / Time No Known Allergies Allergy Verified 11/12/13 07:33 Home Medications Medication Instructions Recorded Confirmed Last Taken Type Clopidogrel Bisulfate [Plavix] 75 mg PO DAILY 11/11/13 10/17/16 10/16/16 History 75mg Glimepiride 2 mg PO DAILY 11/11/13 10/17/16 10/16/16 History 2mg Simvastatin 20 mg PO DAILY 11/11/13 10/17/16 10/16/16 History 10mg Torsemide 20 mg PO BID 11/11/13 01/15/19 10/16/16 History 20mg Tramadol HCl 50 mg PO PRN PRN 11/11/13 10/17/16 10/16/16 History 50mg metOLazone [Metolazone] 2.5 mg PO TID 11/11/13 10/17/16 10/16/16 History 2.5mg Labetalol HCl [Trandate TAB] 300 mg PO BID 12/16/13 01/15/19 10/16/16 History 300mg Albuterol Sulfate [Proair Hfa] 2 puff INHALATION QID 12/18/13 10/17/16 10/16/16 History 2 Ergocalciferol [Vitamin D2] 50,000 unit PO 2XW 12/18/13 01/15/19 10/16/16 History 49356 units Omeprazole 20 mg PO BID 12/18/13 10/17/16 10/16/16 History 20mg ALPRAZolam [Xanax] 1 mg PO 01/15/19 Unknown History Calcium Carbonate 500 mg 01/15/19 Unknown History Clopidogrel [Plavix] 01/15/19 Unknown History Zolpidem [Ambien] 10 mg PO QHS 01/15/19 01/15/19 Unknown History Active Meds: Active Medications Acetaminophen (Tylenol) 650 mg PO Q4H PRN PRN Reason: Pain, Mild (1-3) Aspirin (Aspirin) 325 mg PO QDAY [facility] Last Admin: 01/15/19 10:54 Dose: Not Given Documented by: Ondansetron HCl (Zofran) 4 mg IV Q8H PRN PRN Reason: Nausea And Vomiting Pravastatin Sodium (Pravachol) 40 mg PO QHS [facility] Review of Systems All systems: negative (no headaches, some orthostatic dizziness at times, no snoring or memory problems but some peripheral neuropathy of hands and feet) Physical Examination - Vital Signs Vital Signs: Vital Signs Pulse Ox 98 01/14/19 18:20 - Physical Exam Narrative exam: General Appearance: well developed and obese (per BMI) late 60s white male in NAD with obviously opaque left globe. HEENT: atraumatic, normocephalic; no bruits, 2+ Anahy without soreness or induration or enlargement, sclerae nonicteric. Oropharynx pink and moist. Neck: supple, no bruits. Heart: Grade II/ systolic ejection murmur at the pulmonic position but no other extra sounds. Extremities: no clubbing, cyanosis or edema. 2+ dorsalis pedis pulses bilat erally. Neurologic Exam: Mental Status: Awake, alert, oriented X 3, speech is clear, names pen and ballpoint of pen, and abstracts well. Names President and gives Chanelle as Associate Director Finance after Tomy as prompt, serial 7's intact, no right-left confusion, gets 3 of 3 objects at 3 minutes, spells WORLD backwards correctly. Cranial Nerves: whitehead absent, cannot see retina on the right and cornea opaque on the left, no reaction of irregular right pupil to light, EOMs full without nystagmus but tends to have right exotropia and some difficulty with medial gaze both superiorly and inferiorly in the right and cannot assess on the left, facial sensation decreased to pinprick and light touch right V1-3, no facial weakness, Montalvo is midline, palate rises symmetrically to phonation and gags are positive, shoulder shrug is 5 X 2, tongue protrudes midline. Cerebellar: finger to nose dysmetric right but intact left, heel to vigil dysmetric bilaterally worse on the left. Sensory: Decreased light touch and pinprick right side and also left foot, decreased vibrations right hand and absent right foot and toes and left toes. Double simultaneous stimulation shows loss on the right but probably due to primary deficit. Motor Exam Upper Extremities: Mild right static drift without pronation, Colin slow on the right automation consultant are 5 left and 4- right, tone is normal. No atrophy or fasciculations are noted visually. Motor Exam Lower Extremities: no leg lag; strength is 5 except: iliopsoas and qu adriceps are 4+ on the right, anterior tibial and gastrocnemius are 4- on the right. Colin are slow on the right, tone is normal. No atrophy or fasciculations are noted visually. Reflexes: Palmomental and snout are negative but jaw jerk is positive. Triceps and biceps are 2+ and brachioradialis are 2 bilaterally. Chaya's is negative bilaterally. Knee jerks are 2+ right and 2 left and ankle jerks are 0 bilaterally even with reinforcement and without clonus. Toes are downgoing bilaterally to Babinski testing. Results - Laboratory Findings CBC and BMP: 01/14/19 19:16 01/14/19 19:16 Abnormal Lab Findings: Abnormal Labs 01/14/19 01/14/19 01/14/19 18:38 19:16 19:16 Hgb 11.4 L Hct 34.8 L RDW 15.4 H Upson % (Auto) 8.7 H Chloride 97.9 L Creatinine 5.2 H Glucose 120 H POC Glucose 131 H 01/14/19 01/15/19 01/15/19 21:13 11:16 16:41 Hgb Hct RDW Upson % (Auto) Chloride Creatinine Glucose POC Glucose 191 H 118 H 123 H Assessment and Plan Impression: 1. Lacunar infarct, citlalli 2. Hypertension 3. Diabetes Plan: 1. Will order fasting lipids. Added pravastatin 40 mg, listed as equivalent to his simvastatin 20 mg. 2. Consider changing back to Plavix. 3. Needs probably better BP control at home. Perhaps a regimen of low dose clonidine bid or tid. He says he only takes it "now and then". 4. Explained calf tensing maneuvers for orthostasis. 5. Needs 30 day monitoring as outpatient to rule out PAF. 6. I told him not to delay coming to the emergency room since he could've been a candidate for TPA. 60 minutes spent including advised to come sooner to emergency room as above and explanation of MRI findings which he is not able to see. I left a stack of printouts of the images for his family with labels. Thank for an interesting consultation on this pleasant late 60s man. Will sign off, call for any further questions.
[2019-01-16 09:09] LABS: Chol/HDL Ratio 3.38 %
[2019-01-16] MEDS: ASPIRIN PO SCH (09:24)
[2019-01-16] MEDS: APRESOLINE IV PRN (09:33)
--- NOTE | 2019-01-16 10:37 | Vascular Lab Report ---
PROCEDURE: VL CAROTID DUPLEX BILAT TECHNIQUE: Duplex Doppler ultrasound of the common, internal and external carotid arteries and the v ertebral arteries was performed bilaterally. Syed scale imaging, velocity spectral waveform analysis, and color flow Doppler were employed. HISTORY: RIGHT SIDED WEAKNESS COMPARISONS: None . Note: Measurement of carotid stenosis is based on flow velocity values that correlate with the [place] Symptomatic Carotid Endarterectomy Trial (NASCET) based stenosis criteria using the internal carotid artery diameter as the denominator for stenosis calculation. FINDINGS: RIGHT carotid artery: Velocities: ICA PSV: 122 cm/sec ICA End diastolic: 18 cm/sec CCA PSV: 108 cm/sec IC/CC ratio: 1. 13 Plaque/color flow: Mild heterogeneous plaque without significant spectral broadening or abnormal col or flow . RIGHT vertebral artery: Antegrade systolic and diastolic flow LEFT carotid artery: Velocities: ICA PSV: 89 cm/sec ICA End diastolic: 16 cm/sec CCA PSV: 102 cm/sec IC/CC ratio: 0.8 7 Plaque/color flow: Mild heterogeneous plaque without significant spectral broadening or abnormal col or flow . LEFT vertebral artery: Antegrade systolic and diastolic flow IMPRESSION: 1. RIGHT carotid: No hemodynamically significant (less than 50 percent) internal carotid artery mike nosis. 2. LEFT carotid: No hemodynamically significant (less than 50 percent) internal carotid artery sten osis. 3. Vertebral arteries: Bilaterally antegrade. This document is electronically signed by Lamont Brown MD., January 16 2019 10:34:56 AM ET
--- NOTE | 2019-01-16 10:45 | Progress Note ---
Assessment and Plan - Patient Problems (1) ESRD (end stage renal disease) on dialysis Current Visit: Yes Status: Chronic Plan to address problem: We'll continue patient on Monday and Monday hemodialysis schedule. No acute indications for hemodialysis today. (2) Right sided weakness Current Visit: Yes Status: Acute Plan to address problem: CT scan of the head as well as CT scan of the C-spine noted. Echocardiogram was done this morning and report reviewed. MRI of the brain indicated a subacute infarct in the left citlalli. (3) HTN (hypertension) Current Visit: Yes Status: Chronic Plan to address problem: Continue patient on current home regimen and will continue to monitor. (4) Type II diabetes mellitus Current Visit: Yes Status: Chronic Plan to address problem: Diabetes management per primary team. (5) Secondary hyperparathyroidism (of renal origin) Current Visit: Yes Status: Chronic Plan to address problem: There have patient continue home phosphate binder regimen. (6) Anemia in CKD (chronic kidney disease) Current Visit: Yes Status: Chronic Qualifiers: Chronic kidney disease stage: on chronic dialysis Qualified Code(s): N18.6 - End stage renal disease; D63.1 - Anemia in chronic kidney disease; Z99.2 - Dependence on renal dialysis Plan to address problem: Current hemoglobin levels are at goal. There is no acute needs for NED therapy at this time. We'll continue to monitor Subjective Date of service: 01/16/19 Interval history: No acute complaints at this time. MRI brain indicated subacute infarct in citlalli. No acute indications for dialysis today. Neurology consult noted. Objective - Vital Signs Vital signs: Vital Signs - 12hr 01/15/19 01/16/19 23:09 06:00 Temperature 98.0 F 98.8 F Pulse Rate 76 70 Respiratory 14 18 Rate Blood Pressure 181/59 Blood Pressure 212/77 [Right] O2 Sat by Pulse 98 97 Oximetry - General Appearance General appearance: well-developed, well-nourished EENT: ATNC, PERRL Neck: no JVD, no thyromegaly Respiratory: Present: Clear to Ascultation Cardiology: regular, S1S2 Gastrointestinal: normal, normoactive bowel sounds Integumentary: no rash, warm and dry Neurologic: alert and oriented x3 Psychiatric: mood/affect appropriate, cooperative - Lab 01/14/19 19:16 01/14/19 19:16 Most recent lab results Calcium 9.2 mg/dL (8.4-10.2) 01/14/19 19:16 - Allied health notes Allied health notes reviewed: nursing Medications & Allergies - Medications Allergies/Adverse Reactions: Allergies No Known Allergies Allergy (Verified 11/12/13 07:33) Home Medications: Home Medications Medication Instructions Recorded Confirmed Last Taken Type Clopidogrel Bisulfate [Plavix] 75 mg PO DAILY 11/11/13 01/16/19 3 Days Ago History ~01/13/19 Glimepiride 2 mg PO DAILY 11/11/13 01/16/19 3 Days Ago History ~01/13/19 Simvastatin 20 mg PO DAILY 11/11/13 01/16/19 3 Days Ago History ~01/13/19 Torsemide 20 mg PO BID 11/11/13 01/16/19 3 Days Ago History ~01/13/19 Tramadol HCl 50 mg PO PRN PRN 11/11/13 01/16/19 3 Days Ago History ~01/13/19 metOLazone [Metolazone] 2.5 mg PO TID 11/11/13 01/16/19 3 Days Ago History ~01/13/19 Labetalol HCl [Trandate TAB] 300 mg PO BID 12/16/13 01/16/19 3 Days Ago History ~01/13/19 Albuterol Sulfate [Proair Hfa] 2 puff INHALATION QID 12/18/13 01/16/19 1 Day Ago History ~01/15/19 Ergocalciferol [Vitamin D2] 50,000 unit PO 2XW 12/18/13 01/16/19 3 Days Ago History ~01/13/19 Omeprazole 20 mg PO BID 12/18/13 01/16/19 3 Days Ago History ~01/13/19 ALPRAZolam [Xanax] 1 mg PO HS 01/15/19 01/16/19 3 Days Ago History ~01/13/19 Calcium Carbonate 500 mg PO DAILY 01/15/19 01/16/19 3 Days Ago History ~01/13/19 Clopidogrel [Plavix] 75 mg PO DAILY 01/15/19 01/16/19 3 Days Ago History ~01/13/19 Zolpidem [Ambien] 10 mg PO QHS 01/15/19 01/16/19 3 Days Ago History ~01/13/19 Active Medications: Generic Name Dose Route Start Last Admin Trade Name Freq PRN Reason Stop Dose Admin Acetaminophen 650 mg 01/15/19 04:11 Tylenol PO Q4H PRN Pain, Mild (1-3) Aspirin 325 mg 01/15/19 10:00 01/16/19 09:24 Aspirin PO 325 mg QDAY JIE Administration Hydralazine HCl 5 mg 01/16/19 06:07 01/16/19 09:33 Apresoline IV 5 mg Q6HR PRN Administration SBP > 160 Ondansetron HCl 4 mg 01/15/19 04:11 Zofran IV Q8H PRN Nausea And Vomiting Pravastatin Sodium 40 mg 01/15/19 13:00 01/15/19 21:15 Pravachol PO 40 mg QHS JIE Administration
--- NOTE | 2019-01-16 11:52 | Progress Note ---
Assessment and Plan Assessment and plan: Acute/subacute CVA. Continue CVA protocol. MRI reveals 5 mm subacute lacunar infarct in the left citlalli. Echocardiogram reveals mild concentric left ventricular hypertrophy with an EF of 50-55%. No reports of thrombus. Neurology following. Continue secondary prevention. Currently with aspirin and Started pravastatin 40 mg daily Hypertension. Continue antihypertensive medications. Diabetes mellitus type 2. Continue Accu-Cheks and sliding scale as well. Anemia of CKD. Current hemoglobin levels are at goal. There is no acute needs for NED therapy at this time. We'll continue to monitor Disposition. Physical therapy recommended subacute rehabilitation. Case management follow-up. History Interval history: Patient reports improvement in his right-sided weakness. No new complaints. Hospitalist Physical - Constitutional Vitals: Temp Pulse Resp BP Pulse Ox 98.8 F 70 18 212/77 97 01/16/19 06:00 01/16/19 06:00 01/16/19 06:00 01/16/19 06:00 01/16/19 06:00 General appearance: Present: no acute distress, well-nourished - EENT Eyes: Present: PERRL, EOM intact ENT: hearing intact, clear oral mucosa, dentition normal - Neck Neck: Present: supple, normal ROM - Respiratory Respiratory effort: normal Respiratory: bilateral: CTA - Cardiovascular Rhythm: regular Heart Sounds: Present: S1 & S2. Absent: gallop, rub - Extremities Extremities: no ischemia, No edema, Full ROM - Abdominal General gastrointestinal: soft, non-tender, non-distended, normal bowel sounds - Integumentary Integumentary: Present: clear, warm, dry - Neurologic Neurologic: CNII-XII intact, moves all extremities Results - Labs CBC & Chem 7: 01/14/19 19:16 01/14/19 19:16 Labs: Laboratory Last Values WBC 7.3 K/mm3 (4.5-11.0) 01/14/19 19:16 RBC 4.01 M/mm3 (3.65-5.03) 01/14/19 19:16 Hgb 11.4 gm/dl (11.8-15.2) L 01/14/19 19:16 Hct 34.8 % (35.5-45.6) L 01/14/19 19:16 MCV 87 fl (84-94) 01/14/19 19:16 MCH 28 pg (28-32) 01/14/19 19:16 MCHC 33 % (32-34) 01/14/19 19:16 RDW 15.4 % (13.2-15.2) H 01/14/19 19:16 Plt Count 170 K/mm3 (140-440) 01/14/19 19:16 Lymph % (Auto) 16.6 % (13.4-35.0) 01/14/19 19:16 Lucas % (Auto) 8.7 % (0.0-7.3) H 01/14/19 19:16 Eos % (Auto) 3.2 % (0.0-4.3) 01/14/19 19:16 Baso % (Auto) 1.5 % (0.0-1.8) 01/14/19 19:16 Lymph # 1.2 K/mm3 (1.2-5.4) 01/14/19 19:16 Lucas # 0.6 K/mm3 (0.0-0.8) 01/14/19 19:16 Eos # 0.2 K/mm3 (0.0-0.4) 01/14/19 19:16 Baso # 0.1 K/mm3 (0.0-0.1) 01/14/19 19:16 Seg Neutrophils % 70.0 % (40.0-70.0) 01/14/19 19:16 Seg Neutrophils # 5.1 K/mm3 (1.8-7.7) 01/14/19 19:16 PT 13.6 Sec. (12.2-14.9) 01/14/19 21:09 INR 0.98 (0.87-1.13) 01/14/19 21:09 APTT 31.9 Sec. (24.2-36.6) 01/14/19 21:09 Thrombin Time 16.1 Sec. (15.1-19.6) 01/14/19 21:09 Sodium 141 mmol/L (137-145) 01/14/19 19:16 Potassium 3.9 mmol/L (3.6-5.0) 01/14/19 19:16 Chloride 97.9 mmol/L (98-107) L 01/14/19 19:16 Carbon Dioxide 30 mmol/L (22-30) 03/18/19 19:16 Anion Gap 17 mmol/L 01/14/19 19:16 BUN 19 mg/dL (9-20) 01/14/19 19:16 Creatinine 5.2 mg/dL (0.8-1.5) H 01/14/19 19:16 Estimated GFR 11 ml/min 01/14/19 19:16 BUN/Creatinine Ratio 4 % 01/14/19 19:16 Glucose 120 mg/dL (75-100) H 01/14/19 19:16 POC Glucose 109 (70-105) H 01/16/19 07:50 Calcium 9.2 mg/dL (8.4-10.2) 01/14/19 19:16 Triglycerides 107 mg/dL (2-149) 01/16/19 07:35 Cholesterol 142 mg/dL (50-199) 01/16/19 07:35 LDL Cholesterol Direct 85 mg/dL (50-130) 01/16/19 07:35 HDL Cholesterol 42 mg/dL (40-59) 01/16/19 07:35 Cholesterol/HDL Ratio 3.38 % 01/16/19 07:35 Active Medications - Current Medications Current Medications: Generic Name Dose Route Start Last Admin Trade Name Freq PRN Reason Stop Dose Admin Acetaminophen 650 mg 01/15/19 04:11 Tylenol PO Q4H PRN Pain, Mild (1-3) Aspirin 325 mg 01/15/19 10:00 01/16/19 09:24 Aspirin PO 325 mg QDAY JIE Administration Hydralazine HCl 5 mg 01/16/19 06:07 01/16/19 09:33 Apresoline IV 5 mg Q6HR PRN Administration SBP > 160 Ondansetron HCl 4 mg 01/15/19 04:11 Zofran IV Q8H PRN Nausea And Vomiting Pravastatin Sodium 40 mg 01/15/19 13:00 01/15/19 21:15 Pravachol PO 40 mg QHS JIE Administration
[2019-01-16] MEDS: ZAROXOLYN PO SCH ×2 (17:52→22:22)
[2019-01-16] MEDS: XANAX PO SCH (21:09)
[2019-01-16] MEDS ORDERED: LABETALOL HCL 300 MG PO SCH (22:00)
[2019-01-16] MEDS ORDERED: TORSEMIDE 20 MG PO SCH (22:00)
[2019-01-16] MEDS ORDERED: NON-FORMULARY (Omeprazole [Omeprazole] 20 MG) PO SCH (22:00)
[2019-01-16] MEDS: DEMADEX PO SCH (22:21)
[2019-01-16] MEDS: PRAVACHOL PO SCH (22:22)
[2019-01-16] MEDS: PROTONIX PO SCH (22:22)
[2019-01-16] MEDS: NORMODYNE PO SCH (22:22)
[2019-01-16] MEDS: AMBIEN PO SCH (22:23)
[2019-01-17] MEDS: PRAVACHOL PO SCH ×2 (07:46→21:49)
[2019-01-17] MEDS: AMARYL PO SCH (10:37)
[2019-01-17] MEDS: OSCAL PO SCH (10:37)
[2019-01-17] MEDS: PROTONIX PO SCH ×2 (10:37→21:50)
[2019-01-17] MEDS: NORMODYNE PO SCH ×2 (10:37→21:47)
[2019-01-17] MEDS: VITAMIN D2 PO SCH (10:38)
[2019-01-17] MEDS: PLAVIX PO SCH (10:38)
[2019-01-17] MEDS: ASPIRIN PO SCH (10:38)
[2019-01-17] MEDS: DEMADEX PO SCH ×2 (10:38→21:50)
[2019-01-17] MEDS: ZAROXOLYN PO SCH ×3 (10:40→21:51)
--- NOTE | 2019-01-17 11:46 | Progress Note ---
Assessment and Plan - Patient Problems (1) ESRD (end stage renal disease) on dialysis Current Visit: Yes Status: Chronic Plan to address problem: We'll continue patient on Monday and Monday hemodialysis schedule. No acute indications for hemodialysis today. (2) Right sided weakness Current Visit: Yes Status: Acute Plan to address problem: CT scan of the head as well as CT scan of the C-spine noted. Echocardiogram was done this morning and report reviewed. MRI of the brain indicated a subacute infarct in the left citlalli. Patient is working with PT. Plan for possible subacute rehab per notes. Will follow up. (3) HTN (hypertension) Current Visit: Yes Status: Chronic Plan to address problem: Will add patient on hydralazine 50 mg BID to his current regimen and will continue to monitor. (4) Type II diabetes mellitus Current Visit: Yes Status: Chronic Plan to address problem: Diabetes management per primary team. (5) Secondary hyperparathyroidism (of renal origin) Current Visit: Yes Status: Chronic Plan to address problem: There have patient continue home phosphate binder regimen. (6) Anemia in CKD (chronic kidney disease) Current Visit: Yes Status: Chronic Qualifiers: Chronic kidney disease stage: on chronic dialysis Qualified Code(s): N18.6 - End stage renal disease; D63.1 - Anemia in chronic kidney disease; Z99.2 - Dependence on renal dialysis Plan to address problem: Current hemoglobin levels are at goal. There is no acute needs for NED therapy at this time. We'll continue to monitor Subjective Date of service: 01/17/19 Interval history: No acute changes. Pending discharge to possible sub-acute rehab. Working with PT. Labs stable, plan for HD tommorow. Objective - Vital Signs Vital signs: Vital Signs - 12hr 01/17/19 01/17/19 01/17/19 04:33 08:29 08:30 Temperature 98.0 F 97.7 F Pulse Rate 72 67 Respiratory 18 20 Rate Blood Pressure 188/66 201/69 O2 Sat by Pulse 95 97 Oximetry - General Appearance General appearance: well-developed, well-nourished, appears stated age EENT: ATNC, mucous membranes moist Neck: no JVD, no thyromegaly Respiratory: Present: Clear to Ascultation Cardiology: regular, S1S2 Gastrointestinal: normal, normoactive bowel sounds Integumentary: warm and dry Neurologic: alert and oriented x3 Musculoskeletal: other (-edema ) Psychiatric: mood/affect appropriate, cooperative - Lab 01/14/19 19:16 01/14/19 19:16 Most recent lab results Calcium 9.2 mg/dL (8.4-10.2) 01/14/19 19:16 - Allied health notes Allied health notes reviewed: nursing Medications & Allergies - Medications Allergies/Adverse Reactions: Allergies No Known Allergies Allergy (Verified 11/12/13 07:33) Home Medications: Home Medications Medication Instructions Recorded Confirmed Last Taken Type Clopidogrel Bisulfate [Plavix] 75 mg PO DAILY 11/11/13 01/16/19 3 Days Ago History ~01/13/19 Glimepiride 2 mg PO DAILY 11/11/13 01/16/19 3 Days Ago History ~01/13/19 Simvastatin 20 mg PO DAILY 11/11/13 01/16/19 3 Days Ago History ~01/13/19 Torsemide 20 mg PO BID 11/11/13 01/16/19 3 Days Ago History ~01/13/19 Tramadol HCl 50 mg PO PRN PRN 11/11/13 01/16/19 3 Days Ago History ~01/13/19 metOLazone [Metolazone] 2.5 mg PO TID 11/11/13 01/16/19 3 Days Ago History ~01/13/19 Labetalol HCl [Trandate TAB] 300 mg PO BID 12/16/13 01/16/19 3 Days Ago History ~01/13/19 Albuterol Sulfate [Proair Hfa] 2 puff INHALATION QID 12/18/13 01/16/19 1 Day Ago History ~01/15/19 Ergocalciferol [Vitamin D2] 50,000 unit PO 2XW 12/18/13 01/16/19 3 Days Ago History ~01/13/19 Omeprazole 20 mg PO BID 12/18/13 01/16/19 3 Days Ago History ~01/13/19 ALPRAZolam [Xanax] 1 mg PO HS 01/15/19 01/16/19 3 Days Ago History ~01/13/19 Calcium Carbonate 500 mg PO DAILY 01/15/19 01/16/19 3 Days Ago History ~01/13/19 Clopidogrel [Plavix] 75 mg PO DAILY 01/15/19 01/16/19 3 Days Ago History ~01/13/19 Zolpidem [Ambien] 10 mg PO QHS 01/15/19 01/16/19 3 Days Ago History ~01/13/19 Active Medications: Generic Name Dose Route Start Last Admin Trade Name Freq PRN Reason Stop Dose Admin Acetaminophen 650 mg 01/15/19 04:11 Tylenol PO Q4H PRN Pain, Mild (1-3) Alprazolam 1 mg 01/16/19 22:00 01/16/19 21:09 Xanax PO Not Given HS [facility] Aspirin 325 mg 01/15/19 10:00 01/17/19 10:38 Aspirin PO Not Given QDAY [facility] Calcium Carbonate/Glycine 500 mg 01/17/19 10:00 01/17/19 10:37 Oscal PO 500 mg DAILY JIE Administration Clopidogrel Bisulfate 75 mg 01/17/19 10:00 01/17/19 10:38 Plavix PO 75 mg DAILY JIE Administration Ergocalciferol 50,000 unit 01/17/19 10:00 01/17/19 10:38 Vitamin D2 PO 50,000 unit Th [facility] Administration Glimepiride 2 mg 01/17/19 10:00 01/17/19 10:37 Amaryl PO 2 mg DAILY JIE Administration Hydralazine HCl 5 mg 01/16/19 06:07 01/16/19 09:33 Apresoline IV 5 mg Q6HR PRN Administration SBP > 160 Labetalol HCl 300 mg 01/16/19 22:00 01/17/19 10:37 Normodyne PO 300 mg BID JIE Administration Metolazone 2.5 mg 01/16/19 14:00 01/17/19 10:40 Zaroxolyn PO 2.5 mg TID JIE Administration Ondansetron HCl 4 mg 01/15/19 04:11 Zofran IV Q8H PRN Nausea And Vomiting Pantoprazole Sodium 20 mg 01/16/19 22:00 01/17/19 10:37 Protonix PO 20 mg BID JIE Administration Pravastatin Sodium 40 mg 01/15/19 13:00 01/17/19 07:46 Pravachol PO Not Given QHS [facility] Torsemide 20 mg 01/16/19 22:00 01/17/19 10:38 Demadex PO 20 mg BID JEI Administration Tramadol HCl 50 mg 01/16/19 12:44 Ultram PO PRN PRN Pain Zolpidem Tartrate 10 mg 01/16/19 22:00 01/16/19 22:23 Ambien PO 10 mg QHS JIE Administration
[2019-01-17] MEDS: APRESOLINE PO SCH ×2 (13:39→21:46)
--- NOTE | 2019-01-17 14:36 | Progress Note ---
Assessment and Plan Assessment and plan: Acute/subacute CVA. Continue CVA protocol. MRI reveals 5 mm subacute lacunar infarct in the left citlalli. Echocardiogram reveals mild concentric left ventricular hypertrophy with an EF of 50-55%. No reports of thrombus. Neurology following. Continue secondary prevention. Currently with aspirin and and pravastatin 40 mg daily Hypertension. Continue antihypertensive medications. Diabetes mellitus type 2. Continue Accu-Cheks and sliding scale as well. Anemia of CKD. Current hemoglobin levels are at goal. There is no acute needs for NED therapy at this time. We'll continue to monitor Disposition. Physical therapy recommended subacute rehabilitation. However, Case management left voicemail for Cassie, Director of Rehab to inquire about Acute Rehab bed availability and patient eligibility. History Interval history: Patient reports improvement in his right-sided weakness. No new complaints. Hospitalist Physical - Constitutional Vitals: Temp Pulse Resp BP Pulse Ox 98.2 F 62 20 174/75 97 01/17/19 14:08 01/17/19 14:08 01/17/19 14:08 01/17/19 14:08 01/17/19 14:08 General appearance: Present: no acute distress, well-nourished - EENT Eyes: Present: PERRL, EOM intact ENT: hearing intact, clear oral mucosa, dentition normal - Neck Neck: Present: supple, normal ROM - Respiratory Respiratory effort: normal Respiratory: bilateral: CTA - Cardiovascular Rhythm: regular Heart Sounds: Present: S1 & S2. Absent: gallop, rub - Extremities Extremities: no ischemia, No edema, Full ROM - Abdominal General gastrointestinal: soft, non-tender, non-distended, normal bowel sounds - Integumentary Integumentary: Present: clear, warm, dry - Neurologic Neurologic: CNII-XII intact, moves all extremities Results - Labs CBC & Chem 7: 01/14/19 19:16 01/14/19 19:16 Labs: Laboratory Last Values WBC 7.3 K/mm3 (4.5-11.0) 01/14/19 19:16 RBC 4.01 M/mm3 (3.65-5.03) 01/14/19 19:16 Hgb 11.4 gm/dl (11.8-15.2) L 01/14/19 19:16 Hct 34.8 % (35.5-45.6) L 01/14/19 19:16 MCV 87 fl (84-94) 01/14/19 19:16 MCH 28 pg (28-32) 01/14/19 19:16 MCHC 33 % (32-34) 01/14/19 19:16 RDW 15.4 % (13.2-15.2) H 01/14/19 19:16 Plt Count 170 K/mm3 (140-440) 01/14/19 19:16 Lymph % (Auto) 16.6 % (13.4-35.0) 01/14/19 19:16 Crosby % (Auto) 8.7 % (0.0-7.3) H 01/14/19 19:16 Eos % (Auto) 3.2 % (0.0-4.3) 01/14/19 19:16 Baso % (Auto) 1.5 % (0.0-1.8) 01/14/19 19:16 Lymph # 1.2 K/mm3 (1.2-5.4) 01/14/19 19:16 Crosby # 0.6 K/mm3 (0.0-0.8) 01/14/19 19:16 Eos # 0.2 K/mm3 (0.0-0.4) 01/14/19 19:16 Baso # 0.1 K/mm3 (0.0-0.1) 01/14/19 19:16 Seg Neutrophils % 70.0 % (40.0-70.0) 01/14/19 19:16 Seg Neutrophils # 5.1 K/mm3 (1.8-7.7) 01/14/19 19:16 PT 13.6 Sec. (12.2-14.9) 01/14/19 21:09 INR 0.98 (0.87-1.13) 01/14/19 21:09 APTT 31.9 Sec. (24.2-36.6) 01/14/19 21:09 Thrombin Time 16.1 Sec. (15.1-19.6) 01/14/19 21:09 Sodium 141 mmol/L (137-145) 01/14/19 19:16 Potassium 3.9 mmol/L (3.6-5.0) 01/14/19 19:16 Chloride 97.9 mmol/L (98-107) L 01/14/19 19:16 Carbon Dioxide 30 mmol/L (22-30) 01/14/19 19:16 Anion Gap 17 mmol/L 01/14/19 19:16 BUN 19 mg/dL (9-20) 01/14/19 19:16 Creatinine 5.2 mg/dL (0.8-1.5) H 01/14/19 19:16 Estimated GFR 11 ml/min 01/14/19 19:16 BUN/Creatinine Ratio 4 % 01/14/19 19:16 Glucose 120 mg/dL (75-100) H 01/14/19 19:16 POC Glucose 96 (70-105) 01/17/19 12:57 Calcium 9.2 mg/dL (8.4-10.2) 01/14/19 19:16 Triglycerides 107 mg/dL (2-149) 01/16/19 07:35 Cholesterol 142 mg/dL (50-199) 01/16/19 07:35 LDL Cholesterol Direct 85 mg/dL (50-130) 01/16/19 07:35 HDL Cholesterol 42 mg/dL (40-59) 01/16/19 07:35 Cholesterol/HDL Ratio 3.38 % 01/16/19 07:35 Active Medications - Current Medications Current Medications: Generic Name Dose Route Start Last Admin Trade Name Luciusq PRN Reason Stop Dose Admin Acetaminophen 650 mg 01/15/19 04:11 Tylenol PO Q4H PRN Pain, Mild (1-3) Alprazolam 1 mg 01/16/19 22:00 01/16/19 21:09 Xanax PO Not Given HS [facility] Aspirin 325 mg 01/15/19 10:00 01/17/19 10:38 Aspirin PO Not Given QDAY [facility] Calcium Carbonate/Glycine 500 mg 01/17/19 10:00 01/17/19 10:37 Oscal PO 500 mg DAILY [facility] Administration Clopidogrel Bisulfate 75 mg 01/17/19 10:00 01/17/19 10:38 Plavix PO 75 mg DAILY [facility] Administration Ergocalciferol 50,000 unit 01/17/19 10:00 01/17/19 10:38 Vitamin D2 PO 50,000 unit Th [facility] Administration Glimepiride 2 mg 01/17/19 10:00 01/17/19 10:37 Amaryl PO 2 mg DAILY JIE Administration Hydralazine HCl 5 mg 01/16/19 06:07 01/16/19 09:33 Apresoline IV 5 mg Q6HR PRN Administration SBP > 160 Hydralazine HCl 50 mg 01/17/19 12:00 01/17/19 13:39 Apresoline PO 50 mg BID JIE Administration Labetalol HCl 300 mg 01/16/19 22:00 01/17/19 10:37 Normodyne PO 300 mg BID JIE Administration Metolazone 2.5 mg 01/16/19 14:00 01/17/19 13:39 Zaroxolyn PO 2.5 mg TID JIE Administration Ondansetron HCl 4 mg 01/15/19 04:11 Zofran IV Q8H PRN Nausea And Vomiting Pantoprazole Sodium 20 mg 01/16/19 22:00 01/17/19 10:37 Protonix PO 20 mg BID JIE Administration Pravastatin Sodium 40 mg 01/15/19 13:00 01/17/19 07:46 Pravachol PO Not Given QHS JIE Torsemide 20 mg 01/16/19 22:00 01/17/19 10:38 Demadex PO 20 mg BID JIE Administration Tramadol HCl 50 mg 01/16/19 12:44 Ultram PO PRN PRN Pain Zolpidem Tartrate 10 mg 01/16/19 22:00 01/16/19 22:23 Ambien PO 10 mg QHS JIE Administration
[2019-01-17] MEDS: AMBIEN PO SCH (21:49)
[2019-01-18] MEDS: APRESOLINE IV PRN (00:32)
[2019-01-18] MEDS: XANAX PO SCH ×2 (06:26→22:23)
--- NOTE | 2019-01-18 08:42 | Progress Note ---
Assessment and Plan - Patient Problems (1) ESRD (end stage renal disease) on dialysis Current Visit: Yes Status: Chronic Plan to address problem: We'll continue patient on Monday and Monday hemodialysis schedule. Plan for HD today with orders placed. (2) Right sided weakness Current Visit: Yes Status: Acute Plan to address problem: CT scan of the head as well as CT scan of the C-spine noted. Echocardiogram was done this morning and report reviewed. MRI of the brain indicated a subacute infarct in the left citlalli. Patient is working with PT. Plan for possible subacute rehab per notes. Will follow up. (3) HTN (hypertension) Current Visit: Yes Status: Chronic Plan to address problem: Added patient on hydralazine 50 mg BID to his current regimen and will continue to monitor. response noted. (4) Type II diabetes mellitus Current Visit: Yes Status: Chronic Plan to address problem: Diabetes management per primary team. (5) Secondary hyperparathyroidism (of renal origin) Current Visit: Yes Status: Chronic Plan to address problem: There have patient continue home phosphate binder regimen. (6) Anemia in CKD (chronic kidney disease) Current Visit: Yes Status: Chronic Qualifiers: Chronic kidney disease stage: on chronic dialysis Qualified Code(s): N18.6 - End stage renal disease; D63.1 - Anemia in chronic kidney disease; Z99.2 - D ependence on renal dialysis Plan to address problem: Current hemoglobin levels are at goal. There is no acute needs for NED therapy at this time. We'll continue to monitor Subjective Date of service: 01/18/19 Interval history: No acute issues overnight. Resting this am. Pending placement at rehab. Plan for HD today per his M/F outpatient schedule. Objective - Vital Signs Vital signs: Vital Signs - 12hr 01/17/19 01/17/19 01/18/19 21:46 21:47 00:10 Temperature 98.0 F Pulse Rate 68 68 67 Respiratory 18 Rate Blood Pressure 210/78 210/73 227/84 O2 Sat by Pulse 98 Oximetry 01/18/19 01/18/19 01/18/19 00:32 01:14 04:20 Temperature 98.0 F 98.0 F Pulse Rate 67 81 68 Respiratory 20 18 Rate Blood Pressure 227/84 148/55 136/54 O2 Sat by Pulse 98 94 Oximetry - General Appearance General appearance: well-nourished, appears stated age EENT: ATNC Neck: no JVD, no thyromegaly Respiratory: Present: Clear to Ascultation Cardiology: regular, S1S2 Gastrointestinal: normal, normoactive bowel sounds Integumentary: no rash, warm and dry Neurologic: alert and oriented x3 Psychiatric: mood/affect appropriate, cooperative - Lab 01/14/19 19:16 01/14/19 19:16 Most recent lab results Calcium 9.2 mg/dL (8.4-10.2) 01/14/19 19:16 - Allied health notes Allied health notes reviewed: nursing Medications & Allergies - Medications Allergies/Adverse Reactions: Allergies No Known Allergies Allergy (Verified 11/12/13 07:33) Home Medications: Home Medications Medication Instructions Recorded Confirmed Last Taken Type Clopidogrel Bisulfate [Plavix] 75 mg PO DAILY 11/11/13 01/16/19 3 Days Ago History ~01/13/19 Glimepiride 2 mg PO DAILY 11/11/13 01/16/19 3 Days Ago History ~01/13/19 Simvastatin 20 mg PO DAILY 11/11/13 01/16/19 3 Days Ago History ~01/13/19 Torsemide 20 mg PO BID 11/11/13 01/16/19 3 Days Ago History ~01/13/19 Tramadol HCl 50 mg PO PRN PRN 11/11/13 01/16/19 3 Days Ago History ~01/13/19 metOLazone [Metolazone] 2.5 mg PO TID 11/11/13 01/16/19 3 Days Ago History ~01/13/19 Labetalol HCl [Trandate TAB] 300 mg PO BID 12/16/13 01/16/19 3 Days Ago History ~01/13/19 Albuterol Sulfate [Proair Hfa] 2 puff INHALATION QID 12/18/13 01/16/19 1 Day Ago History ~01/15/19 Ergocalciferol [Vitamin D2] 50,000 unit PO 2XW 12/18/13 01/16/19 3 Days Ago History ~01/13/19 Omeprazole 20 mg PO BID 12/18/13 01/16/19 3 Days Ago History ~01/13/19 ALPRAZolam [Xanax] 1 mg PO HS 01/15/19 01/16/19 3 Days Ago History ~01/13/19 Calcium Carbonate 500 mg PO DAILY 01/15/19 01/16/19 3 Days Ago History ~01/13/19 Clopidogrel [Plavix] 75 mg PO DAILY 01/15/19 01/16/19 3 Days Ago History ~01/13/19 Zolpidem [Ambien] 10 mg PO QHS 01/15/19 01/16/19 3 Days Ago History ~01/13/19 Active Medications: Generic Name Dose Route Start Last Admin Trade Name Roz PRN Reason Stop Dose Admin Acetaminophen 650 mg 01/15/19 04:11 Tylenol PO Q4H PRN Pain, Mild (1-3) Alprazolam 1 mg 01/16/19 22:00 01/18/19 06:26 Xanax PO Not Given HS JIE Aspirin 325 mg 01/15/19 10:00 01/17/19 10:38 Aspirin PO Not Given QDAY JIE Calcium Carbonate/Glycine 500 mg 01/17/19 10:00 01/17/19 10:37 Oscal PO 500 mg DAILY JIE Administration Clopidogrel Bisulfate 75 mg 01/17/19 10:00 01/17/19 10:38 Plavix PO 75 mg DAILY JIE Administration Ergocalciferol 50,000 unit 01/17/19 10:00 01/17/19 10:38 Vitamin D2 PO 50,000 unit Th JIE Administration Glimepiride 2 mg 01/17/19 10:00 01/17/19 10:37 Amaryl PO 2 mg DAILY JIE Administration Hydralazine HCl 5 mg 01/16/19 06:07 01/18/19 00:32 Apresoline IV 5 mg Q6HR PRN Administration SBP > 160 Hydralazine HCl 50 mg 01/17/19 12:00 01/17/19 21:46 Apresoline PO 50 mg BID JIE Administration Sodium Chloride 100 mls @ 999 mls/hr 01/18/19 08:32 Nacl 0.9% IV EVERARDO PRN Hypotension Labetalol HCl 300 mg 01/16/19 22:00 01/17/19 21:47 Normodyne PO 300 mg BID JIE Administration Metolazone 2.5 mg 01/16/19 14:00 01/17/19 21:51 Zaroxolyn PO 2.5 mg TID JIE Administration Ondansetron HCl 4 mg 01/15/19 04:11 Zofran IV Q8H PRN Nausea And Vomiting Pantoprazole Sodium 20 mg 01/16/19 22:00 01/17/19 21:50 Protonix PO 20 mg BID JIE Administration Pravastatin Sodium 40 mg 01/15/19 13:00 01/17/19 21:49 Pravachol PO 40 mg QHS JIE Administration Torsemide 20 mg 01/16/19 22:00 01/17/19 21:50 Demadex PO 20 mg BID JIE Administration Tramadol HCl 50 mg 01/16/19 12:44 Ultram PO PRN PRN Pain Zolpidem Tartrate 10 mg 01/16/19 22:00 01/17/19 21:49 Ambien PO 10 mg QHS JIE Administration
[2019-01-18] MEDS ORDERED: NACL 0.9% 100 ML IV PRN (09:00)
[2019-01-18] MEDS: DEMADEX PO SCH ×2 (09:14→22:22)
[2019-01-18] MEDS: ASPIRIN PO SCH (09:14)
[2019-01-18] MEDS: PLAVIX PO SCH (09:15)
[2019-01-18] MEDS: APRESOLINE PO SCH ×2 (09:15→22:24)
[2019-01-18] MEDS: ZAROXOLYN PO SCH ×3 (09:15→21:13)
[2019-01-18] MEDS: OSCAL PO SCH (09:17)
[2019-01-18] MEDS: AMARYL PO SCH (09:20)
[2019-01-18] MEDS: NORMODYNE PO SCH ×2 (09:24→22:22)
[2019-01-18] MEDS: PROTONIX PO SCH ×2 (09:25→22:23)
[2019-01-18] MEDS ORDERED: ATIVAN PO NR (10:43)
--- NOTE | 2019-01-18 12:38 | Progress Note ---
Assessment and Plan Assessment and plan: Acute/subacute CVA. Continue CVA protocol. MRI reveals 5 mm subacute lacunar infarct in the left citlalli. Echocardiogram reveals mild concentric left ventricular hypertrophy with an EF of 50-55%. No reports of thrombus. Neurology following. Continue secondary prevention. Currently with aspirin and and pravastatin 40 mg daily Hypertension. Continue antihypertensive medications. Diabetes mellitus type 2. Continue Accu-Cheks and sliding scale as well. Anemia of CKD. Current hemoglobin levels are at goal. There is no acute needs for NED therapy at this time. We'll continue to monitor Disposition. Awaiting placement. History Interval history: Patient reports improvement in his right-sided weakness. No new complaints. Hospitalist Physical - Constitutional Vitals: Temp Pulse Resp BP Pulse Ox 98.0 F 70 20 150/48 98 01/18/19 08:40 01/18/19 08:40 01/18/19 08:40 01/18/19 08:40 01/18/19 08:40 General appearance: Present: no acute distress, well-nourished - EENT Eyes: Present: PERRL, EOM intact ENT: hearing intact, clear oral mucosa, dentition normal - Neck Neck: Present: supple, normal ROM - Respiratory Respiratory effort: normal Respiratory: bilateral: CTA - Cardiovascular Rhythm: regular Heart Sounds: Present: S1 & S2. Absent: gallop, rub - Extremities Extremities: no ischemia, No edema, Full ROM - Abdominal General gastrointestinal: soft, non-tender, non-distended, normal bowel sounds - Integumentary Integumentary: Present: clear, warm, dry - Neurologic Neurologic: CNII-XII intact, moves all extremities Results - Labs CBC & Chem 7: 01/14/19 19:16 01/14/19 19:16 Labs: Laboratory Last Values WBC 7.3 K/mm3 (4.5-11.0) 01/14/19 19:16 RBC 4.01 M/mm3 (3.65-5.03) 01/14/19 19:16 Hgb 11.4 gm/dl (11.8-15.2) L 01/14/19 19:16 Hct 34.8 % (35.5-45.6) L 01/14/19 19:16 MCV 87 fl (84-94) 01/14/19 19:16 MCH 28 pg (28-32) 01/14/19 19:16 MCHC 33 % (32-34) 01/14/19 19:16 RDW 15.4 % (13.2-15.2) H 01/14/19 19:16 Plt Count 170 K/mm3 (140-440) 01/14/19 19:16 Lymph % (Auto) 16.6 % (13.4-35.0) 01/14/19 19:16 [place] % (Auto) 8.7 % (0.0-7.3) H 01/14/19 19:16 Eos % (Auto) 3.2 % (0.0-4.3) 01/14/19 19:16 Baso % (Auto) 1.5 % (0.0-1.8) 01/14/19 19:16 Lymph # 1.2 K/mm3 (1.2-5.4) 01/14/19 19:16 [place] # 0.6 K/mm3 (0.0-0.8) 01/14/19 19:16 Eos # 0.2 K/mm3 (0.0-0.4) 01/14/19 19:16 Baso # 0.1 K/mm3 (0.0-0.1) 01/14/19 19:16 Seg Neutrophils % 70.0 % (40.0-70.0) 01/14/19 19:16 Seg Neutrophils # 5.1 K/mm3 (1.8-7.7) 01/14/19 19:16 PT 13.6 Sec. (12.2-14.9) 01/14/19 21:09 INR 0.98 (0.87-1.13) 01/14/19 21:09 APTT 31.9 Sec. (24.2-36.6) 01/14/19 21:09 Thrombin Time 16.1 Sec. (15.1-19.6) 01/14/19 21:09 Sodium 141 mmol/L (137-145) 01/14/19 19:16 Potassium 3.9 mmol/L (3.6-5.0) 01/14/19 19:16 Chloride 97.9 mmol/L (98-107) L 01/14/19 19:16 Carbon Dioxide 30 mmol/L (22-30) 03/18/19 19:16 Anion Gap 17 mmol/L 01/14/19 19:16 BUN 19 mg/dL (9-20) 01/14/19 19:16 Creatinine 5.2 mg/dL (0.8-1.5) H 01/14/19 19:16 Estimated GFR 11 ml/min 01/14/19 19:16 BUN/Creatinine Ratio 4 % 01/14/19 19:16 Glucose 120 mg/dL (75-100) H 01/14/19 19:16 POC Glucose 138 (70-105) H 01/17/19 21:16 Calcium 9.2 mg/dL (8.4-10.2) 01/14/19 19:16 Triglycerides 107 mg/dL (2-149) 01/16/19 07:35 Cholesterol 142 mg/dL (50-199) 01/16/19 07:35 LDL Cholesterol Direct 85 mg/dL (50-130) 01/16/19 07:35 HDL Cholesterol 42 mg/dL (40-59) 01/16/19 07:35 Cholesterol/HDL Ratio 3.38 % 01/16/19 07:35 Active Medications - Current Medications Current Medications: Generic Name Dose Route Start Last Admin Trade Name Freq PRN Reason Stop Dose Admin Acetaminophen 650 mg 01/15/19 04:11 Tylenol PO Q4H PRN Pain, Mild (1-3) Alprazolam 1 mg 01/16/19 22:00 01/18/19 06:26 Xanax PO Not Given HS [facility] Aspirin 325 mg 01/15/19 10:00 01/18/19 09:14 Aspirin PO 325 mg QDAY [facility] Administration Calcium Carbonate/Glycine 500 mg 01/17/19 10:00 01/18/19 09:17 Oscal PO 500 mg DAILY JIE Administration Clopidogrel Bisulfate 75 mg 01/17/19 10:00 01/18/19 09:15 Plavix PO 75 mg DAILY [facility] Administration Ergocalciferol 50,000 unit 01/17/19 10:00 01/17/19 10:38 Vitamin D2 PO 50,000 unit Th [facility] Administration Glimepiride 2 mg 01/17/19 10:00 01/18/19 09:20 Amaryl PO 2 mg DAILY JIE Administration Hydralazine HCl 5 mg 01/16/19 06:07 01/18/19 00:32 Apresoline IV 5 mg Q6HR PRN Administration SBP > 160 Hydralazine HCl 50 mg 01/17/19 12:00 01/18/19 09:15 Apresoline PO 50 mg BID JIE Administration Sodium Chloride 100 mls @ 999 mls/hr 01/18/19 09:00 Nacl 0.9% IV EVERARDO PRN Hypotension Labetalol HCl 300 mg 01/16/19 22:00 01/18/19 09:24 Normodyne PO 300 mg BID JIE Administration Lorazepam 1 mg 01/18/19 10:43 Ativan PO 01/18/19 13:00 ONCE NR Metolazone 2.5 mg 01/16/19 14:00 01/18/19 09:15 Zaroxolyn PO 2.5 mg TID JIE Administration Ondansetron HCl 4 mg 01/15/19 04:11 Zofran IV Q8H PRN Nausea And Vomiting Pantoprazole Sodium 20 mg 01/16/19 22:00 01/18/19 09:25 Protonix PO 20 mg BID JIE Administration Pravastatin Sodium 40 mg 01/15/19 13:00 01/17/19 21:49 Pravachol PO 40 mg QHS JIE Administration Torsemide 20 mg 01/16/19 22:00 01/18/19 09:14 Demadex PO 20 mg BID JIE Administration Tramadol HCl 50 mg 01/16/19 12:44 Ultram PO PRN PRN Pain Zolpidem Tartrate 10 mg 01/16/19 22:00 01/17/19 21:49 Ambien PO 10 mg QHS JIE Administration
[2019-01-18 16:06] LABS: Hepatitis B Surface Antigen Non-Reactive (Negative); Hepatitis C Virus Antibody Non-Reactive (NonReactive)
[2019-01-18] MEDS ORDERED: NACL 0.9 (PRIMING MACHINE ONLY DIALYSIS) MC ONE (19:17)
[2019-01-18] MEDS: TYLENOL PO PRN (21:13)
[2019-01-18] MEDS: PRAVACHOL PO SCH (22:23)
[2019-01-18] MEDS: AMBIEN PO SCH (22:24)
[2019-01-19] MEDS: NORMODYNE PO SCH ×2 (10:20→22:31)
[2019-01-19] MEDS: ASPIRIN PO SCH (10:25)
[2019-01-19] MEDS: APRESOLINE PO SCH ×2 (10:26→22:31)
[2019-01-19] MEDS: DEMADEX PO SCH ×2 (10:27→22:30)
[2019-01-19] MEDS: PROTONIX PO SCH ×2 (10:27→22:32)
[2019-01-19] MEDS: PLAVIX PO SCH (10:28)
[2019-01-19] MEDS: AMARYL PO SCH (10:29)
[2019-01-19] MEDS: ZAROXOLYN PO SCH ×3 (10:31→21:15)
[2019-01-19] MEDS: OSCAL PO SCH (10:55)
[2019-01-19] MEDS: ULTRAM PO PRN (11:14)
--- NOTE | 2019-01-19 11:57 | Progress Note ---
Assessment and Plan Assessment and plan: Acute/subacute CVA. Continue CVA protocol. MRI reveals 5 mm subacute lacunar infarct in the left citlalli. Echocardiogram reveals mild concentric left ventricular hypertrophy with an EF of 50-55%. No reports of thrombus. Neurology following. Continue secondary prevention. Currently with aspirin and and pravastatin 40 mg daily Hypertension. Continue antihypertensive medications. Diabetes mellitus type 2. Continue Accu-Cheks and sliding scale as well. Anemia of CKD. Current hemoglobin levels are at goal. There is no acute needs for NED therapy at this time. We'll continue to monitor Disposition. Awaiting placement. History Interval history: Patient reports improvement in his right-sided weakness. No new complaints. Hospitalist Physical - Constitutional Vitals: Temp Pulse Resp BP Pulse Ox 98.0 F 67 20 130/62 99 01/19/19 11:10 01/19/19 11:10 01/19/19 11:10 01/19/19 11:10 01/19/19 11:10 General appearance: Present: no acute distress, well-nourished - EENT Eyes: Present: PERRL, EOM intact ENT: hearing intact, clear oral mucosa, dentition normal - Neck Neck: Present: supple, normal ROM - Respiratory Respiratory effort: normal Respiratory: bilateral: CTA - Cardiovascular Rhythm: regular Heart Sounds: Present: S1 & S2. Absent: gallop, rub - Extremities Extremities: no ischemia, No edema, Full ROM - Abdominal General gastrointestinal: soft, non-tender, non-distended, normal bowel sounds - Integumentary Integumentary: Present: clear, warm, dry - Neurologic Neurologic: CNII-XII intact, moves all extremities Results - Labs CBC & Chem 7: 01/14/19 19:16 01/14/19 19:16 Labs: Laboratory Last Values WBC 7.3 K/mm3 (4.5-11.0) 01/14/19 19:16 RBC 4.01 M/mm3 (3.65-5.03) 01/14/19 19:16 Hgb 11.4 gm/dl (11.8-15.2) L 01/14/19 19:16 Hct 34.8 % (35.5-45.6) L 01/14/19 19:16 MCV 87 fl (84-94) 01/14/19 19:16 MCH 28 pg (28-32) 01/14/19 19:16 MCHC 33 % (32-34) 01/14/19 19:16 RDW 15.4 % (13.2-15.2) H 01/14/19 19:16 Plt Count 170 K/mm3 (140-440) 01/14/19 19:16 Lymph % (Auto) 16.6 % (13.4-35.0) 01/14/19 19:16 [place] % (Auto) 8.7 % (0.0-7.3) H 01/14/19 19:16 Eos % (Auto) 3.2 % (0.0-4.3) 01/14/19 19:16 Baso % (Auto) 1.5 % (0.0-1.8) 01/14/19 19:16 Lymph # 1.2 K/mm3 (1.2-5.4) 01/14/19 19:16 [place] # 0.6 K/mm3 (0.0-0.8) 01/14/19 19:16 Eos # 0.2 K/mm3 (0.0-0.4) 01/14/19 19:16 Baso # 0.1 K/mm3 (0.0-0.1) 01/14/19 19:16 Seg Neutrophils % 70.0 % (40.0-70.0) 01/14/19 19:16 Seg Neutrophils # 5.1 K/mm3 (1.8-7.7) 01/14/19 19:16 PT 13.6 Sec. (12.2-14.9) 01/14/19 21:09 INR 0.98 (0.87-1.13) 01/14/19 21:09 APTT 31.9 Sec. (24.2-36.6) 01/14/19 21:09 Thrombin Time 16.1 Sec. (15.1-19.6) 01/14/19 21:09 Sodium 141 mmol/L (137-145) 01/14/19 19:16 Potassium 3.9 mmol/L (3.6-5.0) 01/14/19 19:16 Chloride 97.9 mmol/L (98-107) L 01/14/19 19:16 Carbon Dioxide 30 mmol/L (22-30) 03/18/19 19:16 Anion Gap 17 mmol/L 01/14/19 19:16 BUN 19 mg/dL (9-20) 01/14/19 19:16 Creatinine 5.2 mg/dL (0.8-1.5) H 01/14/19 19:16 Estimated GFR 11 ml/min 01/14/19 19:16 BUN/Creatinine Ratio 4 % 01/14/19 19:16 Glucose 120 mg/dL (75-100) H 01/14/19 19:16 POC Glucose 67 (70-105) L 01/19/19 09:41 Calcium 9.2 mg/dL (8.4-10.2) 01/14/19 19:16 Triglycerides 107 mg/dL (2-149) 01/16/19 07:35 Cholesterol 142 mg/dL (50-199) 01/16/19 07:35 LDL Cholesterol Direct 85 mg/dL (50-130) 01/16/19 07:35 HDL Cholesterol 42 mg/dL (40-59) 01/16/19 07:35 Cholesterol/HDL Ratio 3.38 % 01/16/19 07:35 Hepatitis A IgM Ab Non-reactive (NonReactive) 01/18/19 14:47 Hep Bs Antigen Non-reactive (Negative) 01/18/19 14:47 Hep B Core IgM Ab Non-reactive (NonReactive) 01/18/19 14:47 Hepatitis C Antibody Non-reactive (NonReactive) 01/18/19 14:47 Active Medications - Current Medications Current Medications: Generic Name Dose Route Start Last Admin Trade Name Freq PRN Reason Stop Dose Admin Acetaminophen 650 mg 01/15/19 04:11 01/18/19 21:13 Tylenol PO 650 mg Q4H PRN Administration Pain, Mild (1-3) Alprazolam 1 mg 01/16/19 22:00 01/18/19 22:23 Xanax PO 1 mg HS JIE Administration Aspirin 325 mg 01/15/19 10:00 01/19/19 10:25 Aspirin PO 325 mg QDAY JIE Administration Calcium Carbonate/Glycine 500 mg 01/17/19 10:00 01/19/19 10:55 Oscal PO 500 mg DAILY JIE Administration Clopidogrel Bisulfate 75 mg 01/17/19 10:00 01/19/19 10:28 Plavix PO 75 mg DAILY JIE Administration Ergocalciferol 50,000 unit 01/17/19 10:00 01/17/19 10:38 Vitamin D2 PO 50,000 unit Th JIE Administration Glimepiride 2 mg 01/17/19 10:00 01/19/19 10:29 Amaryl PO Not Given DAILY JIE Hydralazine HCl 5 mg 01/16/19 06:07 01/18/19 00:32 Apresoline IV 5 mg Q6HR PRN Administration SBP > 160 Hydralazine HCl 50 mg 01/17/19 12:00 01/19/19 10:26 Apresoline PO 25 mg BID JIE Administration Sodium Chloride 100 mls @ 999 mls/hr 01/18/19 09:00 Nacl 0.9% IV EVERARDO PRN Hypotension Labetalol HCl 300 mg 01/16/19 22:00 01/18/19 22:22 Normodyne PO 300 mg BID JIE Administration Metolazone 2.5 mg 01/16/19 14:00 01/19/19 10:31 Zaroxolyn PO 2.5 mg TID JIE Administration Ondansetron HCl 4 mg 01/15/19 04:11 Zofran IV Q8H PRN Nausea And Vomiting Pantoprazole Sodium 20 mg 01/16/19 22:00 01/19/19 10:27 Protonix PO 20 mg BID JIE Administration Pravastatin Sodium 40 mg 01/15/19 13:00 01/18/19 22:23 Pravachol PO 40 mg QHS JIE Administration Torsemide 20 mg 01/16/19 22:00 01/19/19 10:27 Demadex PO 20 mg BID JIE Administration Tramadol HCl 50 mg 01/16/19 12:44 01/19/19 11:14 Ultram PO 50 mg PRN PRN Administration Pain Zolpidem Tartrate 10 mg 01/16/19 22:00 01/18/19 22:24 Ambien PO 10 mg QHS JIE Administration
--- NOTE | 2019-01-19 14:21 | Progress Note ---
Assessment and Plan - Patient Problems (1) ESRD (end stage renal disease) on dialysis Current Visit: Yes Status: Chronic Plan to address problem: We'll continue patient on Monday and Monday hemodialysis schedule. Plan for HD today with orders placed. (2) Right sided weakness Current Visit: Yes Status: Acute Plan to address problem: CT scan of the head as well as CT scan of the C-spine noted. Echocardiogram was done this morning and report reviewed. MRI of the brain indicated a subacute infarct in the left citlalli. PT ongoing (3) HTN (hypertension) Current Visit: Yes Status: Chronic Plan to address problem: BP improved after addint hydralazine 50 mg BID to his current regimen and will continue to monitor. (4) Anemia in CKD (chronic kidney disease) Current Visit: Yes Status: Chronic Qualifiers: Chronic kidney disease stage: on chronic dialysis Qualified Code(s): N18.6 - End stage renal disease; D63.1 - Anemia in chronic kidney disease; Z99.2 - Dependence on renal dialysis Plan to address problem: Current hemoglobin levels are at goal. There is no acute needs for NED therapy at this time. We'll continue to m (5) Type II diabetes mellitus Current Visit: Yes Status: Chronic Plan to address problem: Diabetes management per primary team (6) Secondary hyperparathyroidism (of renal origin) Current Visit: Yes Status: Chronic Plan to address problem: continue home phosphate binder regimen. Subjective Date of service: 01/19/19 Principal diagnosis: ESRD Interval history: pt weak, lethargic, wakes up on verbal stimuli Objective - Vital Signs Vital signs: Vital Signs - 12hr 01/19/19 01/19/19 01/19/19 04:05 06:16 07:46 Temperature 98.3 F 98.2 F Pulse Rate 60 67 64 Respiratory 20 20 Rate Blood Pressure 147/51 149/66 O2 Sat by Pulse 97 98 Oximetry 01/19/19 11:10 Temperature 98.0 F Pulse Rate 67 Respiratory 20 Rate Blood Pressure 130/62 O2 Sat by Pulse 99 Oximetry - General Appearance General appearance: well-developed, well-nourished, appears stated age EENT: ATNC, PERRL, mucous membranes moist Neck: no JVD Respiratory: Present: Clear to Ascultation Cardiology: regular, S1S2 Gastrointestinal: normoactive bowel sounds Integumentary: no rash, other (+ edema b/l LE ) Neurologic: no focal deficit, alert and oriented x3, strength 5/5, CN 3-12 intact Psychiatric: mood/affect appropriate, cooperative - Lab 01/14/19 19:16 01/14/19 19:16 Most recent lab results Calcium 9.2 mg/dL (8.4-10.2) 01/14/19 19:16 Medications & Allergies - Medications Allergies/Adverse Reactions: Allergies No Known Allergies Allergy (Verified 11/12/13 07:33) Home Medications: Home Medications Medication Instructions Recorded Confirmed Last Taken Type Clopidogrel Bisulfate [Plavix] 75 mg PO DAILY 11/11/13 01/16/19 3 Days Ago History ~01/13/19 Glimepiride 2 mg PO DAILY 11/11/13 01/16/19 3 Days Ago History ~01/13/19 Simvastatin 20 mg PO DAILY 11/11/13 01/16/19 3 Days Ago History ~01/13/19 Torsemide 20 mg PO BID 11/11/13 01/16/19 3 Days Ago History ~01/13/19 Tramadol HCl 50 mg PO PRN PRN 11/11/13 01/16/19 3 Days Ago History ~01/13/19 metOLazone [Metolazone] 2.5 mg PO TID 11/11/13 01/16/19 3 Days Ago History ~01/13/19 Labetalol HCl [Trandate TAB] 300 mg PO BID 12/16/13 01/16/19 3 Days Ago History ~01/13/19 Albuterol Sulfate [Proair Hfa] 2 puff INHALATION QID 12/18/13 01/16/19 1 Day Ago History ~01/15/19 Ergocalciferol [Vitamin D2] 50,000 unit PO 2XW 12/18/13 01/16/19 3 Days Ago History ~01/13/19 Omeprazole 20 mg PO BID 12/18/13 01/16/19 3 Days Ago History ~01/13/19 ALPRAZolam [Xanax] 1 mg PO HS 01/15/19 01/16/19 3 Days Ago History ~01/13/19 Calcium Carbonate 500 mg PO DAILY 01/15/19 01/16/19 3 Days Ago History ~01/13/19 Clopidogrel [Plavix] 75 mg PO DAILY 01/15/19 01/16/19 3 Days Ago History ~01/13/19 Zolpidem [Ambien] 10 mg PO QHS 01/15/19 01/16/19 3 Days Ago History ~01/13/19 Active Medications: Generic Name Dose Route Start Last Admin Trade Name Freq PRN Reason Stop Dose Admin Acetaminophen 650 mg 01/15/19 04:11 01/18/19 21:13 Tylenol PO 650 mg Q4H PRN Administration Pain, Mild (1-3) Alprazolam 1 mg 01/16/19 22:00 01/18/19 22:23 Xanax PO 1 mg HS JIE Administration Aspirin 325 mg 01/15/19 10:00 01/19/19 10:25 Aspirin PO 325 mg QDAY JIE Administration Calcium Carbonate/Glycine 500 mg 01/17/19 10:00 01/19/19 10:55 Oscal PO 500 mg DAILY JIE Administration Clopidogrel Bisulfate 75 mg 01/17/19 10:00 01/19/19 10:28 Plavix PO 75 mg DAILY JIE Administration Ergocalciferol 50,000 unit 01/17/19 10:00 01/17/19 10:38 Vitamin D2 PO 50,000 unit Th JIE Administration Glimepiride 2 mg 01/17/19 10:00 01/19/19 10:29 Amaryl PO Not Given DAILY JIE Hydralazine HCl 5 mg 01/16/19 06:07 01/18/19 00:32 Apresoline IV 5 mg Q6HR PRN Administration SBP > 160 Hydralazine HCl 50 mg 01/17/19 12:00 01/19/19 10:26 Apresoline PO 25 mg BID JIE Administration Sodium Chloride 100 mls @ 999 mls/hr 01/18/19 09:00 Nacl 0.9% IV EVERARDO PRN Hypotension Labetalol HCl 300 mg 01/16/19 22:00 01/18/19 22:22 Normodyne PO 300 mg BID JIE Administration Metolazone 2.5 mg 01/16/19 14:00 01/19/19 10:31 Zaroxolyn PO 2.5 mg TID JIE Administration Ondansetron HCl 4 mg 01/15/19 04:11 Zofran IV Q8H PRN Nausea And Vomiting Pantoprazole Sodium 20 mg 01/16/19 22:00 01/19/19 10:27 Protonix PO 20 mg BID JIE Administration Pravastatin Sodium 40 mg 01/15/19 13:00 01/18/19 22:23 Pravachol PO 40 mg QHS JIE Administration Torsemide 20 mg 01/16/19 22:00 01/19/19 10:27 Demadex PO 20 mg BID JIE Administration Tramadol HCl 50 mg 01/16/19 12:44 01/19/19 11:14 Ultram PO 50 mg PRN PRN Administration Pain Zolpidem Tartrate 10 mg 01/16/19 22:00 01/18/19 22:24 Ambien PO 10 mg QHS JIE Administration
[2019-01-19] MEDS: PRAVACHOL PO SCH (22:32)
[2019-01-19] MEDS: XANAX PO SCH (22:34)
[2019-01-19] MEDS: AMBIEN PO SCH (22:43)
[2019-01-19] MEDS: TYLENOL PO PRN (22:43)
[2019-01-20] MEDS: APRESOLINE PO SCH ×2 (09:41→21:25)
[2019-01-20] MEDS: ZAROXOLYN PO SCH ×3 (09:41→21:25)
[2019-01-20] MEDS: OSCAL PO SCH (09:42)
[2019-01-20] MEDS: DEMADEX PO SCH ×2 (09:43→21:26)
[2019-01-20] MEDS: AMARYL PO SCH (09:43)
[2019-01-20] MEDS: PLAVIX PO SCH (09:43)
[2019-01-20] MEDS: NORMODYNE PO SCH ×2 (09:43→21:26)
[2019-01-20] MEDS: PROTONIX PO SCH ×2 (09:45→21:25)
--- NOTE | 2019-01-20 10:22 | Progress Note ---
Assessment and Plan Assessment and plan: Acute/subacute CVA. Continue CVA protocol. MRI reveals 5 mm subacute lacunar infarct in the left citlalli. Echocardiogram reveals mild concentric left ventricular hypertrophy with an EF of 50-55%. No reports of thrombus. Neurology following. Continue secondary prevention. Currently with aspirin and and pravastatin 40 mg daily Hypertension. Continue antihypertensive medications. Diabetes mellitus type 2. Continue Accu-Cheks and sliding scale as well. Anemia of CKD. Current hemoglobin levels are at goal. There is no acute needs for NED therapy at this time. We'll continue to monitor Disposition. Awaiting placement. History Interval history: Patient reports improvement in his right-sided weakness. No new complaints. Hospitalist Physical - Constitutional Vitals: Temp Pulse Resp BP Pulse Ox 98.0 F 73 20 140/59 95 01/20/19 07:38 01/20/19 09:43 01/20/19 07:38 01/20/19 09:43 01/20/19 07:38 General appearance: Present: no acute distress, well-nourished - EENT Eyes: Present: PERRL, EOM intact ENT: hearing intact, clear oral mucosa, dentition normal - Neck Neck: Present: supple, normal ROM - Respiratory Respiratory effort: normal Respiratory: bilateral: CTA - Cardiovascular Rhythm: regular Heart Sounds: Present: S1 & S2. Absent: gallop, rub - Extremities Extremities: no ischemia, No edema, Full ROM - Abdominal General gastrointestinal: soft, non-tender, non-distended, normal bowel sounds - Integumentary Integumentary: Present: clear, warm, dry - Neurologic Neurologic: CNII-XII intact, moves all extremities Results - Labs CBC & Chem 7: 01/14/19 19:16 01/14/19 19:16 Labs: Laboratory Last Values WBC 7.3 K/mm3 (4.5-11.0) 01/14/19 19:16 RBC 4.01 M/mm3 (3.65-5.03) 01/14/19 19:16 Hgb 11.4 gm/dl (11.8-15.2) L 01/14/19 19:16 Hct 34.8 % (35.5-45.6) L 01/14/19 19:16 MCV 87 fl (84-94) 01/14/19 19:16 MCH 28 pg (28-32) 01/14/19 19:16 MCHC 33 % (32-34) 01/14/19 19:16 RDW 15.4 % (13.2-15.2) H 01/14/19 19:16 Plt Count 170 K/mm3 (140-440) 01/14/19 19:16 Lymph % (Auto) 16.6 % (13.4-35.0) 01/14/19 19:16 [place] % (Auto) 8.7 % (0.0-7.3) H 01/14/19 19:16 Eos % (Auto) 3.2 % (0.0-4.3) 01/14/19 19:16 Baso % (Auto) 1.5 % (0.0-1.8) 01/14/19 19:16 Lymph # 1.2 K/mm3 (1.2-5.4) 01/14/19 19:16 [place] # 0.6 K/mm3 (0.0-0.8) 01/14/19 19:16 Eos # 0.2 K/mm3 (0.0-0.4) 01/14/19 19:16 Baso # 0.1 K/mm3 (0.0-0.1) 01/14/19 19:16 Seg Neutrophils % 70.0 % (40.0-70.0) 01/14/19 19:16 Seg Neutrophils # 5.1 K/mm3 (1.8-7.7) 01/14/19 19:16 PT 13.6 Sec. (12.2-14.9) 01/14/19 21:09 INR 0.98 (0.87-1.13) 01/14/19 21:09 APTT 31.9 Sec. (24.2-36.6) 01/14/19 21:09 Thrombin Time 16.1 Sec. (15.1-19.6) 01/14/19 21:09 Sodium 141 mmol/L (137-145) 01/14/19 19:16 Potassium 3.9 mmol/L (3.6-5.0) 01/14/19 19:16 Chloride 97.9 mmol/L (98-107) L 01/14/19 19:16 Carbon Dioxide 30 mmol/L (22-30) 03/18/19 19:16 Anion Gap 17 mmol/L 01/14/19 19:16 BUN 19 mg/dL (9-20) 01/14/19 19:16 Creatinine 5.2 mg/dL (0.8-1.5) H 01/14/19 19:16 Estimated GFR 11 ml/min 01/14/19 19:16 BUN/Creatinine Ratio 4 % 01/14/19 19:16 Glucose 120 mg/dL (75-100) H 01/14/19 19:16 POC Glucose 135 (70-105) H 01/20/19 07:40 Calcium 9.2 mg/dL (8.4-10.2) 01/14/19 19:16 Triglycerides 107 mg/dL (2-149) 01/16/19 07:35 Cholesterol 142 mg/dL (50-199) 01/16/19 07:35 LDL Cholesterol Direct 85 mg/dL (50-130) 01/16/19 07:35 HDL Cholesterol 42 mg/dL (40-59) 01/16/19 07:35 Cholesterol/HDL Ratio 3.38 % 01/16/19 07:35 Hepatitis A IgM Ab Non-reactive (NonReactive) 01/18/19 14:47 Hep Bs Antigen Non-reactive (Negative) 01/18/19 14:47 Hep B Core IgM Ab Non-reactive (NonReactive) 01/18/19 14:47 Hepatitis C Antibody Non-reactive (NonReactive) 01/18/19 14:47 Active Medications - Current Medications Current Medications: Generic Name Dose Route Start Last Admin Trade Name Freq PRN Reason Stop Dose Admin Acetaminophen 650 mg 01/15/19 04:11 01/19/19 22:43 Tylenol PO 650 mg Q4H PRN Administration Pain, Mild (1-3) Alprazolam 1 mg 01/16/19 22:00 01/19/19 22:34 Xanax PO Not Given HS JIE Aspirin 325 mg 01/15/19 10:00 01/19/19 10:25 Aspirin PO 325 mg QDAY JIE Administration Calcium Carbonate/Glycine 500 mg 01/17/19 10:00 01/20/19 09:42 Oscal PO 500 mg DAILY JIE Administration Clopidogrel Bisulfate 75 mg 01/17/19 10:00 01/20/19 09:43 Plavix PO 75 mg DAILY JIE Administration Ergocalciferol 50,000 unit 01/17/19 10:00 01/17/19 10:38 Vitamin D2 PO 50,000 unit Th JIE Administration Glimepiride 2 mg 01/17/19 10:00 01/20/19 09:43 Amaryl PO 2 mg DAILY JIE Administration Hydralazine HCl 5 mg 01/16/19 06:07 01/18/19 00:32 Apresoline IV 5 mg Q6HR PRN Administration SBP > 160 Hydralazine HCl 50 mg 01/17/19 12:00 01/20/19 09:41 Apresoline PO 50 mg BID JIE Administration Sodium Chloride 100 mls @ 999 mls/hr 01/18/19 09:00 Nacl 0.9% IV EVERARDO PRN Hypotension Labetalol HCl 300 mg 01/16/19 22:00 01/20/19 09:43 Normodyne PO 300 mg BID JIE Administration Metolazone 2.5 mg 01/16/19 14:00 01/20/19 09:41 Zaroxolyn PO 2.5 mg TID JIE Administration Ondansetron HCl 4 mg 01/15/19 04:11 Zofran IV Q8H PRN Nausea And Vomiting Pantoprazole Sodium 20 mg 01/16/19 22:00 01/20/19 09:45 Protonix PO 20 mg BID JIE Administration Pravastatin Sodium 40 mg 01/15/19 13:00 01/19/19 22:32 Pravachol PO 40 mg QHS JIE Administration Torsemide 20 mg 01/16/19 22:00 01/20/19 09:43 Demadex PO 20 mg BID JIE Administration Tramadol HCl 50 mg 01/16/19 12:44 01/19/19 11:14 Ultram PO 50 mg PRN PRN Administration Pain Zolpidem Tartrate 10 mg 01/16/19 22:00 01/19/19 22:43 Ambien PO 10 mg QHS JIE Administration
[2019-01-20] MEDS ORDERED: NACL 0.9% 100 ML IV PRN (11:57)
--- NOTE | 2019-01-20 11:57 | Progress Note ---
Assessment and Plan - Patient Problems (1) ESRD (end stage renal disease) on dialysis Current Visit: Yes Status: Chronic Plan to address problem: We'll continue patient on Monday and Monday hemodialysis schedule. Plan for HD today with orders placed. (2) Right sided weakness Current Visit: Yes Status: Acute Plan to address problem: CT scan of the head as well as CT scan of the C-spine noted. Echocardiogram was done this morning and report reviewed. MRI of the brain indicated a subacute infarct in the left citlalli. PT ongoing (3) HTN (hypertension) Current Visit: Yes Status: Chronic Plan to address problem: BP improved after addint hydralazine 50 mg BID to his current regimen and will continue to monitor. (4) Anemia in CKD (chronic kidney disease) Current Visit: Yes Status: Chronic Qualifiers: Chronic kidney disease stage: on chronic dialysis Qualified Code(s): N18.6 - End stage renal disease; D63.1 - Anemia in chronic kidney disease; Z99.2 - Dependence on renal dialysis Plan to address problem: Current hemoglobin levels are at goal. There is no acute needs for NED therapy at this time. We'll continue to m (5) Type II diabetes mellitus Current Visit: Yes Status: Chronic Plan to address problem: Diabetes management per primary team (6) Secondary hyperparathyroidism (of renal origin) Current Visit: Yes Status: Chronic Plan to address problem: continue home phosphate binder regimen. Subjective Date of service: 01/20/19 Principal diagnosis: ESRD Interval history: pt awake, alert, in NAD Objective - Vital Signs Vital signs: Vital Signs - 12hr 01/20/19 01/20/19 01/20/19 00:08 04:48 07:38 Temperature 97.8 F 98.5 F 98.0 F Pulse Rate 71 66 68 Respiratory 20 20 20 Rate Blood Pressure 150/57 156/66 140/59 O2 Sat by Pulse 97 95 95 Oximetry 01/20/19 01/20/19 01/20/19 09:41 09:43 11:21 Temperature 98.6 F Pulse Rate 68 73 66 Respiratory 20 Rate Blood Pressure 140/59 140/59 179/77 O2 Sat by Pulse 97 Oximetry - General Appearance General appearance: well-developed, appears stated age EENT: ATNC, mucous membranes moist, other (leaglly blind ) Neck: no JVD Respiratory: Present: Clear to Ascultation Cardiology: regular, S1S2 Gastrointestinal: normoactive bowel sounds, obese Integumentary: no rash, other (no edema ) Neurologic: no focal deficit, alert and oriented x3, strength 5/5, CN 3-12 intact Psychiatric: mood/affect appropriate, cooperative - Lab 01/14/19 19:16 01/14/19 19:16 Most recent lab results Calcium 9.2 mg/dL (8.4-10.2) 01/14/19 19:16 Medications & Allergies - Medications Allergies/Adverse Reactions: Allergies No Known Allergies Allergy (Verified 11/12/13 07:33) Home Medications: Home Medications Medication Instructions Recorded Confirmed Last Taken Type Clopidogrel Bisulfate [Plavix] 75 mg PO DAILY 11/11/13 01/16/19 3 Days Ago His tory ~01/13/19 Glimepiride 2 mg PO DAILY 11/11/13 01/16/19 3 Days Ago History ~01/13/19 Simvastatin 20 mg PO DAILY 11/11/13 01/16/19 3 Days Ago History ~01/13/19 Torsemide 20 mg PO BID 11/11/13 01/16/19 3 Days Ago History ~01/13/19 Tramadol HCl 50 mg PO PRN PRN 11/11/13 01/16/19 3 Days Ago History ~01/13/19 metOLazone [Metolazone] 2.5 mg PO TID 11/11/13 01/16/19 3 Days Ago History ~01/13/19 Labetalol HCl [Trandate TAB] 300 mg PO BID 12/16/13 01/16/19 3 Days Ago History ~01/13/19 Albuterol Sulfate [Proair Hfa] 2 puff INHALATION QID 12/18/13 01/16/19 1 Day Ago History ~01/15/19 Ergocalciferol [Vitamin D2] 50,000 unit PO 2XW 12/18/13 01/16/19 3 Days Ago History ~01/13/19 Omeprazole 20 mg PO BID 12/18/13 01/16/19 3 Days Ago History ~01/13/19 ALPRAZolam [Xanax] 1 mg PO HS 01/15/19 01/16/19 3 Days Ago History ~01/13/19 Calcium Carbonate 500 mg PO DAILY 01/15/19 01/16/19 3 Days Ago History ~01/13/19 Clopidogrel [Plavix] 75 mg PO DAILY 01/15/19 01/16/19 3 Days Ago History ~01/13/19 Zolpidem [Ambien] 10 mg PO QHS 01/15/19 01/16/19 3 Days Ago History ~01/13/19 Active Medications: Generic Name Dose Route Start Last Admin Trade Name Freq PRN Reason Stop Dose Admin Acetaminophen 650 mg 01/15/19 04:11 01/19/19 22:43 Tylenol PO 650 mg Q4H PRN Administration Pain, Mild (1-3) Alprazolam 1 mg 01/16/19 22:00 01/19/19 22:34 Xanax PO Not Given HS [facility] Aspirin 325 mg 01/15/19 10:00 01/19/19 10:25 Aspirin PO 325 mg QDAY JIE Administration Calcium Carbonate/Glycine 500 mg 01/17/19 10:00 01/20/19 09:42 Oscal PO 500 mg DAILY JIE Administration Clopidogrel Bisulfate 75 mg 01/17/19 10:00 01/20/19 09:43 Plavix PO 75 mg DAILY JIE Administration Ergocalciferol 50,000 unit 01/17/19 10:00 01/17/19 10:38 Vitamin D2 PO 50,000 unit Th [facility] Administration Glimepiride 2 mg 01/17/19 10:00 01/20/19 09:43 Amaryl PO 2 mg DAILY JIE Administration Hydralazine HCl 5 mg 01/16/19 06:07 01/18/19 00:32 Apresoline IV 5 mg Q6HR PRN Administration SBP > 160 Hydralazine HCl 50 mg 01/17/19 12:00 01/20/19 09:41 Apresoline PO 50 mg BID JIE Administration Sodium Chloride 100 mls @ 999 mls/hr 01/18/19 09:00 Nacl 0.9% IV EVERARDO PRN Hypotension Labetalol HCl 300 mg 01/16/19 22:00 01/20/19 09:43 Normodyne PO 300 mg BID JIE Administration Loratadine 10 mg 01/20/19 11:00 Claritin PO DAILY [facility] Metolazone 2.5 mg 01/16/19 14:00 01/20/19 09:41 Zaroxolyn PO 2.5 mg TID JIE Administration Ondansetron HCl 4 mg 01/15/19 04:11 Zofran IV Q8H PRN Nausea And Vomiting Pantoprazole Sodium 20 mg 01/16/19 22:00 01/20/19 09:45 Protonix PO 20 mg BID JIE Administration Pravastatin Sodium 40 mg 01/15/19 13:00 01/19/19 22:32 Pravachol PO 40 mg QHS JIE Administration Torsemide 20 mg 01/16/19 22:00 01/20/19 09:43 Demadex PO 20 mg BID JIE Administration Tramadol HCl 50 mg 01/16/19 12:44 01/19/19 11:14 Ultram PO 50 mg PRN PRN Administration Pain Zolpidem Tartrate 10 mg 01/16/19 22:00 01/19/19 22:43 Ambien PO 10 mg QHS JIE Administration
[2019-01-20] MEDS: ASPIRIN PO SCH (12:37)
[2019-01-20] MEDS: CLARITIN PO SCH (12:37)
[2019-01-20] MEDS: ULTRAM PO PRN (15:19)
[2019-01-20] MEDS: PRAVACHOL PO SCH (21:26)
[2019-01-20] MEDS: AMBIEN PO SCH (21:26)
[2019-01-20] MEDS: XANAX PO SCH (21:28)
[2019-01-21] MEDS: ZAROXOLYN PO SCH ×3 (08:49→22:16)
--- NOTE | 2019-01-21 09:52 | Progress Note ---
Assessment and Plan - Patient Problems (1) ESRD (end stage renal disease) on dialysis Current Visit: Yes Status: Chronic Plan to address problem: We'll continue patient on Monday and Monday hemodialysis schedule. stable for discharge from renal stand point after HD today (2) Right sided weakness Current Visit: Yes Status: Acute Plan to address problem: CT scan of the head as well as CT scan of the C-spine noted. Echocardiogram was done this morning and report reviewed. MRI of the brain indicated a subacute infarct in the left citlalli. PT ongoing (3) HTN (hypertension) Current Visit: Yes Status: Chronic Plan to address problem: BP improved after addint hydralazine 50 mg BID to his current regimen and will continue to monitor. (4) Anemia in CKD (chronic kidney disease) Current Visit: Yes Status: Chronic Qualifiers: Chronic kidney disease stage: on chronic dialysis Qualified Code(s): N18.6 - End stage renal disease; D63.1 - Anemia in chronic kidney disease; Z99.2 - Dependence on renal dialysis Plan to address problem: Current hemoglobin levels are at goal. There is no acute needs for NED therapy at this time. We'll continue to m (5) Type II diabetes mellitus Current Visit: Yes Status: Chronic Plan to address problem: Diabetes management per primary team (6) Secondary hyperparathyroidism (of renal origin) Current Visit: Yes Status: Chronic Plan to address problem: continue home phosphate binder regimen. Subjective Date of service: 01/21/19 Principal diagnosis: ESRD Interval history: pt awake, alert, in NAD Objective - Vital Signs Vital signs: Vital Signs - 12hr 01/21/19 01/21/19 01/21/19 00:00 00:31 04:00 Temperature 98.3 F 98.3 F 97.3 F L Pulse Rate 97 H 119 H Respiratory 20 20 20 Rate Blood Pressure 163/69 Blood Pressure 163/69 184/74 [Right] O2 Sat by Pulse 97 97 Oximetry 01/21/19 01/21/19 01/21/19 04:59 07:50 07:51 Temperature 97.6 F 97.0 F L 97.9 F Pulse Rate 54 L Respiratory 20 20 20 Rate Blood Pressure 184/74 165/61 Blood Pressure [Right] O2 Sat by Pulse 97 Oximetry - General Appearance General appearance: well-developed, well-nourished, appears stated age EENT: ATNC, mucous membranes moist Neck: no JVD Respiratory: Present: Clear to Ascultation Cardiology: regular, S1S2 Gastrointestinal: normoactive bowel sounds Integumentary: no rash, other (no edema ) Neurologic: no focal deficit, alert and oriented x3, strength 5/5, CN 3-12 intact Psychiatric: mood/affect appropriate, cooperative - Lab 01/14/19 19:16 01/14/19 19:16 Most recent lab results Calcium 9.2 mg/dL (8.4-10.2) 01/14/19 19:16 Medications & Allergies - Medications Allergies/Adverse Reactions: Allergies No Known Allergies Allergy (Verified 11/12/13 07:33) Home Medications: Home Medications Medication Instructions Recorded Confirmed Last Taken Type Clopidogrel Bisulfate [Plavix] 75 mg PO DAILY 11/11/13 01/16/19 3 Days Ago History ~01/13/19 Glimepiride 2 mg PO DAILY 11/11/13 01/16/19 3 Days Ago History ~01/13/19 Simvastatin 20 mg PO DAILY 11/11/13 01/16/19 3 Days Ago History ~01/13/19 Torsemide 20 mg PO BID 11/11/13 01/16/19 3 Days Ago History ~01/13/19 Tramadol HCl 50 mg PO PRN PRN 11/11/13 01/16/19 3 Days Ago History ~01/13/19 metOLazone [Metolazone] 2.5 mg PO TID 11/11/13 01/16/19 3 Days Ago History ~01/13/19 Labetalol HCl [Trandate TAB] 300 mg PO BID 12/16/13 01/16/19 3 Days Ago History ~01/13/19 Albuterol Sulfate [Proair Hfa] 2 puff INHALATION QID 12/18/13 01/16/19 1 Day Ago History ~01/15/19 Ergocalciferol [Vitamin D2] 50,000 unit PO 2XW 12/18/13 01/16/19 3 Days Ago History ~01/13/19 Omeprazole 20 mg PO BID 12/18/13 01/16/19 3 Days Ago History ~01/13/19 ALPRAZolam [Xanax] 1 mg PO HS 01/15/19 01/16/19 3 Days Ago History ~01/13/19 Calcium Carbonate 500 mg PO DAILY 01/15/19 01/16/19 3 Days Ago History ~01/13/19 Clopidogrel [Plavix] 75 mg PO DAILY 01/15/19 01/16/19 3 Days Ago History ~01/13/19 Zolpidem [Ambien] 10 mg PO QHS 01/15/19 01/16/19 3 Days Ago History ~01/13/19 Active Medications: Generic Name Dose Route Start Last Admin Trade Name [place] PRN Reason Stop Dose Admin Acetaminophen 650 mg 01/15/19 04:11 01/19/19 22:43 Tylenol PO 650 mg Q4H PRN Administration Pain, Mild (1-3) Alprazolam 1 mg 01/16/19 22:00 01/20/19 21:28 Xanax PO Not Given HS JIE Aspirin 325 mg 01/15/19 10:00 01/20/19 12:37 Aspirin PO 325 mg QDAY JIE Administration Calcium Carbonate/Glycine 500 mg 01/17/19 10:00 01/20/19 09:42 Oscal PO 500 mg DAILY JIE Administration Clopidogrel Bisulfate 75 mg 01/17/19 10:00 01/20/19 09:43 Plavix PO 75 mg DAILY JIE Administration Ergocalciferol 50,000 unit 01/17/19 10:00 01/17/19 10:38 Vitamin D2 PO 50,000 unit Th JIE Administration Glimepiride 2 mg 01/17/19 10:00 01/20/19 09:43 Amaryl PO 2 mg DAILY JIE Administration Hydralazine HCl 5 mg 01/16/19 06:07 01/18/19 00:32 Apresoline IV 5 mg Q6HR PRN Administration SBP > 160 Hydralazine HCl 50 mg 01/17/19 12:00 01/20/19 21:25 Apresoline PO 50 mg BID JIE Administration Sodium Chloride 100 mls @ 999 mls/hr 01/18/19 09:00 Nacl 0.9% IV EVERARDO PRN Hypotension Labetalol HCl 300 mg 01/16/19 22:00 01/20/19 21:26 Normodyne PO 300 mg BID JIE Administration Loratadine 10 mg 01/20/19 11:00 01/20/19 12:37 Claritin PO 10 mg DAILY JIE Administration Metolazone 2.5 mg 01/16/19 14:00 01/21/19 08:49 Zaroxolyn PO 2.5 mg TID JIE Administration Ondansetron HCl 4 mg 01/15/19 04:11 Zofran IV Q8H PRN Nausea And Vomiting Pantoprazole Sodium 20 mg 01/16/19 22:00 01/20/19 21:25 Protonix PO 20 mg BID JIE Administration Pravastatin Sodium 40 mg 01/15/19 13:00 01/20/19 21:26 Pravachol PO 40 mg QHS JIE Administration Torsemide 20 mg 01/16/19 22:00 01/20/19 21:26 Demadex PO 20 mg BID JIE Administration Tramadol HCl 50 mg 01/16/19 12:44 01/20/19 15:19 Ultram PO 50 mg PRN PRN Administration Pain Zolpidem Tartrate 10 mg 01/16/19 22:00 01/20/19 21:26 Ambien PO 10 mg QHS JIE Administration
[2019-01-21] MEDS ORDERED: CLARITIN-D 24HR PO SCH (10:00)
[2019-01-21] MEDS ORDERED: D50W (25GM) Syringe IV ONE (11:20)
[2019-01-21] MEDS: OSCAL PO SCH (11:59)
[2019-01-21] MEDS: ASPIRIN PO SCH (11:59)
[2019-01-21] MEDS: DEMADEX PO SCH ×2 (12:00→22:15)
[2019-01-21] MEDS: PLAVIX PO SCH (12:00)
[2019-01-21] MEDS: AMARYL PO SCH (12:00)
[2019-01-21] MEDS: PROTONIX PO SCH ×2 (12:01→22:16)
[2019-01-21] MEDS: CLARITIN PO SCH (12:01)
--- NOTE | 2019-01-21 12:28 | Progress Note ---
Assessment and Plan Assessment and plan: Acute/subacute CVA. Continue CVA protocol. MRI reveals 5 mm subacute lacunar infarct in the left citlalli. Echocardiogram reveals mild concentric left ventricular hypertrophy with an EF of 50-55%. No reports of thrombus. Neurology following. Continue secondary prevention. Currently with aspirin and and pravastatin 40 mg daily Metabolic encephalopathy. 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 Start D5 IV fluids. Hypertension. Continue antihypertensive medications. Diabetes mellitus type 2. Continue Accu-Cheks and sliding scale as well. Anemia of CKD. Current hemoglobin levels are at goal. There is no acute needs for NED therapy at this time. We'll continue to monitor Disposition. Awaiting placement. History Interval history: Patient with rapid response this morning related to hypo-responsiveness. Patient was found by the nurse to be minimally responsive. Blood glucose was found to be less than 20. Patient received D50 with resolution of symptoms. Hospitalist Physical - Constitutional Vitals: Temp Pulse Resp BP Pulse Ox 97.9 F 54 L 20 165/61 97 01/21/19 07:51 01/21/19 07:50 01/21/19 07:51 01/21/19 07:50 01/21/19 07:50 General appearance: Present: no acute distress, well-nourished - EENT Eyes: Present: PERRL, EOM intact ENT: hearing intact, clear oral mucosa, dentition normal - Neck Neck: Present: supple, normal ROM - Respiratory Respiratory effort: normal Respiratory: bilateral: CTA - Cardiovascular Rhythm: regular Heart Sounds: Present: S1 & S2. Absent: gallop, rub - Extremities Extremities: no ischemia, No edema, Full ROM - Abdominal General gastrointestinal: soft, non-tender, non-distended, normal bowel sounds - Integumentary Integumentary: Present: clear, warm, dry - Neurologic Neurologic: CNII-XII intact, moves all extremities Results - Labs CBC & Chem 7: 01/14/19 19:16 01/14/19 19:16 Labs: Laboratory Last Values WBC 7.3 K/mm3 (4.5-11.0) 01/14/19 19:16 RBC 4.01 M/mm3 (3.65-5.03) 01/14/19 19:16 Hgb 11.4 gm/dl (11.8-15.2) L 01/14/19 19:16 Hct 34.8 % (35.5-45.6) L 01/14/19 19:16 MCV 87 fl (84-94) 01/14/19 19:16 MCH 28 pg (28-32) 01/14/19 19:16 MCHC 33 % (32-34) 01/14/19 19:16 RDW 15.4 % (13.2-15.2) H 01/14/19 19:16 Plt Count 170 K/mm3 (140-440) 01/14/19 19:16 Lymph % (Auto) 16.6 % (13.4-35.0) 01/14/19 19:16 [place] % (Auto) 8.7 % (0.0-7.3) H 01/14/19 19:16 Eos % (Auto) 3.2 % (0.0-4.3) 01/14/19 19:16 Baso % (Auto) 1.5 % (0.0-1.8) 01/14/19 19:16 Lymph # 1.2 K/mm3 (1.2-5.4) 01/14/19 19:16 [place] # 0.6 K/mm3 (0.0-0.8) 01/14/19 19:16 Eos # 0.2 K/mm3 (0.0-0.4) 01/14/19 19:16 Baso # 0.1 K/mm3 (0.0-0.1) 01/14/19 19:16 Seg Neutrophils % 70.0 % (40.0-70.0) 01/14/19 19:16 Seg Neutrophils # 5.1 K/mm3 (1.8-7.7) 01/14/19 19:16 PT 13.6 Sec. (12.2-14.9) 01/14/19 21:09 INR 0.98 (0.87-1.13) 01/14/19 21:09 APTT 31.9 Sec. (24.2-36.6) 01/14/19 21:09 Thrombin Time 16.1 Sec. (15.1-19.6) 01/14/19 21:09 Sodium 141 mmol/L (137-145) 01/14/19 19:16 Potassium 3.9 mmol/L (3.6-5.0) 01/14/19 19:16 Chloride 97.9 mmol/L (98-107) L 01/14/19 19:16 Carbon Dioxide 30 mmol/L (22-30) 01/14/19 19:16 Anion Gap 17 mmol/L 01/14/19 19:16 BUN 19 mg/dL (9-20) 01/14/19 19:16 Creatinine 5.2 mg/dL (0.8-1.5) H 01/14/19 19:16 Estimated GFR 11 ml/min 01/14/19 19:16 BUN/Creatinine Ratio 4 % 01/14/19 19:16 Glucose 120 mg/dL (75-100) H 01/14/19 19:16 POC Glucose 61 (70-105) L 01/21/19 07:52 Calcium 9.2 mg/dL (8.4-10.2) 01/14/19 19:16 Triglycerides 107 mg/dL (2-149) 01/16/19 07:35 Cholesterol 142 mg/dL (50-199) 01/16/19 07:35 LDL Cholesterol Direct 85 mg/dL (50-130) 01/16/19 07:35 HDL Cholesterol 42 mg/dL (40-59) 01/16/19 07:35 Cholesterol/HDL Ratio 3.38 % 01/16/19 07:35 Hepatitis A IgM Ab Non-reactive (NonReactive) 01/18/19 14:47 Hep Bs Antigen Non-reactive (Negative) 01/18/19 14:47 Hep B Core IgM Ab Non-reactive (NonReactive) 01/18/19 14:47 Hepatitis C Antibody Non-reactive (NonReactive) 01/18/19 14:47 Active Medications - Current Medications Current Medications: Generic Name Dose Route Start Last Admin Trade Name Freq PRN Reason Stop Dose Admin Acetaminophen 650 mg 01/15/19 04:11 01/19/19 22:43 Tylenol PO 650 mg Q4H PRN Administration Pain, Mild (1-3) Alprazolam 1 mg 01/16/19 22:00 01/20/19 21:28 Xanax PO Not Given HS JIE Aspirin 325 mg 01/15/19 10:00 01/21/19 11:59 Aspirin PO 325 mg QDAY JIE Administration Calcium Carbonate/Glycine 500 mg 01/17/19 10:00 01/21/19 11:59 Oscal PO 500 mg DAILY JIE Administration Clopidogrel Bisulfate 75 mg 01/17/19 10:00 01/21/19 12:00 Plavix PO 75 mg DAILY JIE Administration Ergocalciferol 50,000 unit 01/17/19 10:00 01/17/19 10:38 Vitamin D2 PO 50,000 unit Th JIE Administration Glimepiride 2 mg 01/17/19 10:00 01/21/19 12:00 Amaryl PO Not Given DAILY JEI Hydralazine HCl 5 mg 01/16/19 06:07 01/18/19 00:32 Apresoline IV 5 mg Q6HR PRN Administration SBP > 160 Hydralazine HCl 50 mg 01/17/19 12:00 01/20/19 21:25 Apresoline PO 50 mg BID JIE Administration Sodium Chloride 100 mls @ 999 mls/hr 01/18/19 09:00 Nacl 0.9% IV EVERARDO PRN Hypotension Labetalol HCl 300 mg 01/16/19 22:00 01/20/19 21:26 Normodyne PO 300 mg BID [facility] Administration Loratadine 10 mg 01/20/19 11:00 01/21/19 12:01 Claritin PO 10 mg DAILY JIE Administration Metolazone 2.5 mg 01/16/19 14:00 01/21/19 08:49 Zaroxolyn PO 2.5 mg TID JIE Administration Ondansetron HCl 4 mg 01/15/19 04:11 Zofran IV Q8H PRN Nausea And Vomiting Pantoprazole Sodium 20 mg 01/16/19 22:00 01/21/19 12:01 Protonix PO 20 mg BID JIE Administration Pravastatin Sodium 40 mg 01/15/19 13:00 01/20/19 21:26 Pravachol PO 40 mg QHS JIE Administration Torsemide 20 mg 01/16/19 22:00 01/21/19 12:00 Demadex PO 20 mg BID JIE Administration Tramadol HCl 50 mg 01/16/19 12:44 01/20/19 15:19 Ultram PO 50 mg PRN PRN Administration Pain Zolpidem Tartrate 10 mg 01/16/19 22:00 01/20/19 21:26 Ambien PO 10 mg QHS JIE Administration
[2019-01-21] MEDS: APRESOLINE PO SCH ×2 (14:02→22:15)
[2019-01-21] MEDS: NORMODYNE PO SCH ×2 (14:04→22:16)
[2019-01-21] MEDS ORDERED: D5/0.45NS 1,000 ML IV SCH (16:00)
[2019-01-21] MEDS: XANAX PO SCH (22:16)
[2019-01-21] MEDS: PRAVACHOL PO SCH (22:16)
[2019-01-21] MEDS: AMBIEN PO SCH (22:16)
[2019-01-22] MEDS: APRESOLINE IV PRN (04:20)
[2019-01-22] MEDS: ZAROXOLYN PO SCH ×3 (08:23→21:45)
[2019-01-22] MEDS ORDERED: D50W (25GM) Syringe IV PRN (09:16)
[2019-01-22] MEDS: OSCAL PO SCH (09:40)
[2019-01-22] MEDS: ASPIRIN PO SCH (09:40)
[2019-01-22] MEDS: APRESOLINE PO SCH ×2 (09:41→21:42)
[2019-01-22] MEDS: NORMODYNE PO SCH ×2 (09:42→21:32)
[2019-01-22] MEDS: CLARITIN PO SCH (09:43)
[2019-01-22] MEDS: AMARYL PO SCH (09:43)
[2019-01-22] MEDS: PLAVIX PO SCH (09:43)
[2019-01-22] MEDS: DEMADEX PO SCH ×2 (09:43→21:45)
[2019-01-22] MEDS: PROTONIX PO SCH ×2 (09:43→21:45)
[2019-01-22] MEDS: VITAMIN D2 PO SCH (09:44)
--- NOTE | 2019-01-22 10:08 | Progress Note ---
Assessment and Plan - Patient Problems (1) ESRD (end stage renal disease) on dialysis Current Visit: Yes Status: Chronic Plan to address problem: We'll continue patient on Monday and Monday hemodialysis schedule. stable for discharge from renal stand point (2) Right sided weakness Current Visit: Yes Status: Acute Plan to address problem: CT scan of the head as well as CT scan of the C-spine noted. Echocardiogram was done this morning and report reviewed. MRI of the brain indicated a subacute infarct in the left citlalli. PT ongoing (3) HTN (hypertension) Current Visit: Yes Status: Chronic Plan to address problem: BP improved after addint hydralazine 50 mg BID to his current regimen and will continue to monitor. (4) Anemia in CKD (chronic kidney disease) Current Visit: Yes Status: Chronic Qualifiers: Chronic kidney disease stage: on chronic dialysis Qualified Code(s): N18.6 - End stage renal disease; D63.1 - Anemia in chronic kidney disease; Z99.2 - Dependence on renal dialysis Plan to address problem: Current hemoglobin levels are at goal. There is no acute needs for NED therapy at this time. We'll continue to m (5) Type II diabetes mellitus Current Visit: Yes Status: Chronic Plan to address problem: Diabetes management per primary team (6) Secondary hyperparathyroidism (of renal origin) Current Visit: Yes Status: Chronic Plan to address problem: continue home phosphate binder regimen. Subjective Date of service: 01/22/19 Principal diagnosis: ESRD Interval history: pt awake, alert, in NAD Objective - Vital Signs Vital signs: Vital Signs - 12hr 01/21/19 01/22/19 01/22/19 23:29 04:05 06:53 Temperature 98.6 F 98.9 F Pulse Rate 80 73 75 Pulse Rate [ Apical] Pulse Rate [ Left Posterior Tibial] Pulse Rate [ Left Radial] Pulse Rate [ Right Posterior Tibial] Pulse Rate [ Right Radial] Respiratory 18 20 Rate Blood Pressure 160/57 193/87 Blood Pressure 131/52 [Right] O2 Sat by Pulse 95 96 Oximetry 01/22/19 01/22/19 01/22/19 09:05 09:41 09:42 Temperature Pulse Rate 67 67 Pulse Rate [ 75 Apical] Pulse Rate [ 75 Left Posterior Tibial] Pulse Rate [ 75 Left Radial] Pulse Rate [ 75 Right Posterior Tibial] Pulse Rate [ 75 Right Radial] Respiratory 19 Rate Blood Pressure 118/59 118/59 Blood Pressure [Right] O2 Sat by Pulse 97 Oximetry - General Appearance General appearance: well-developed, appears stated age EENT: ATNC, mucous membranes moist Neck: no JVD Respiratory: Present: Clear to Ascultation Cardiology: regular, S1S2 Gastrointestinal: normoactive bowel sounds, obese Integumentary: no rash Neurologic: no focal deficit, alert and oriented x3, strength 5/5, CN 3-12 intact - Lab 01/14/19 19:16 01/21/19 12:04 Most recent lab results Calcium 9.2 mg/dL (8.4-10.2) 01/14/19 19:16 Medications & Allergies - Medications Allergies/Adverse Reactions: Allergies No Known Allergies Allergy (Verified 11/12/13 07:33) Home Medications: Home Medications Medication Instructions Recorded Confirmed Last Taken Type Clopidogrel Bisulfate [Plavix] 75 mg PO DAILY 11/11/13 01/16/19 3 Days Ago History ~01/13/19 Glimepiride 2 mg PO DAILY 11/11/13 01/16/19 3 Days Ago History ~01/13/19 Simvastatin 20 mg PO DAILY 11/11/13 01/16/19 3 Days Ago History ~01/13/19 Torsemide 20 mg PO BID 11/11/13 01/16/19 3 Days Ago History ~01/13/19 Tramadol HCl 50 mg PO PRN PRN 11/11/13 01/16/19 3 Days Ago History ~01/13/19 metOLazone [Metolazone] 2.5 mg PO TID 11/11/13 01/16/19 3 Days Ago History ~01/13/19 Labetalol HCl [Trandate TAB] 300 mg PO BID 12/16/13 01/16/19 3 Days Ago History ~01/13/19 Albuterol Sulfate [Proair Hfa] 2 puff INHALATION QID 12/18/13 01/16/19 1 Day Ago History ~01/15/19 Ergocalciferol [Vitamin D2] 50,000 unit PO 2XW 12/18/13 01/16/19 3 Days Ago History ~01/13/19 Omeprazole 20 mg PO BID 12/18/13 01/16/19 3 Days Ago History ~01/13/19 ALPRAZolam [Xanax] 1 mg PO HS 01/15/19 01/16/19 3 Days Ago History ~01/13/19 Calcium Carbonate 500 mg PO DAILY 01/15/19 01/16/19 3 Days Ago History ~01/13/19 Clopidogrel [Plavix] 75 mg PO DAILY 01/15/19 01/16/19 3 Days Ago History ~01/13/19 Zolpidem [Ambien] 10 mg PO QHS 01/15/19 01/16/19 3 Days Ago History ~01/13/19 Active Medications: Generic Name Dose Route Start Last Admin Trade Name Freq PRN Reason Stop Dose Admin Acetaminophen 650 mg 01/15/19 04:11 01/19/19 22:43 Tylenol PO 650 mg Q4H PRN Administration Pain, Mild (1-3) Alprazolam 1 mg 01/16/19 22:00 01/21/19 22:16 Xanax PO Not Given HS JIE Aspirin 325 mg 01/15/19 10:00 01/22/19 09:40 Aspirin PO 325 mg QDAY JIE Administration Calcium Carbonate/Glycine 500 mg 01/17/19 10:00 01/22/19 09:40 Oscal PO 500 mg DAILY JIE Administration Clopidogrel Bisulfate 75 mg 01/17/19 10:00 01/22/19 09:43 Plavix PO 75 mg DAILY JIE Administration Dextrose 50 ml 01/22/19 09:16 D50w (25gm) Syringe IV PRN PRN Hypoglycemia Ergocalciferol 50,000 unit 01/17/19 10:00 01/22/19 09:44 Vitamin D2 PO 50,000 unit Th JIE Administration Glimepiride 2 mg 01/17/19 10:00 01/22/19 09:43 Amaryl PO 2 mg DAILY JIE Administration Hydralazine HCl 5 mg 01/16/19 06:07 01/22/19 04:20 Apresoline IV 5 mg Q6HR PRN Administration SBP > 160 Hydralazine HCl 50 mg 01/17/19 12:00 01/22/19 09:41 Apresoline PO 50 mg BID JIE Administration Sodium Chloride 100 mls @ 999 mls/hr 01/18/19 09:00 Nacl 0.9% IV EVERARDO PRN Hypotension Dextrose/Sodium Chloride 1,000 mls @ 75 mls/hr 01/21/19 16:00 01/21/19 15:45 D5/0.45ns IV 75 mls/hr DIRECT JIE Administration Insulin Human Lispro 0 unit 01/22/19 11:30 Humalog SUB-Q ACHS [facility] Protocol Labetalol HCl 300 mg 01/16/19 22:00 01/22/19 09:42 Normodyne PO 300 mg BID JIE Administration Loratadine 10 mg 01/20/19 11:00 01/22/19 09:43 Claritin PO 10 mg DAILY JIE Administration Metolazone 2.5 mg 01/16/19 14:00 01/22/19 08:23 Zaroxolyn PO 2.5 mg TID JIE Administration Ondansetron HCl 4 mg 01/15/19 04:11 Zofran IV Q8H PRN Nausea And Vomiting Pantoprazole Sodium 20 mg 01/16/19 22:00 01/22/19 09:43 Protonix PO 20 mg BID JIE Administration Pravastatin Sodium 40 mg 01/15/19 13:00 01/21/19 22:16 Pravachol PO 40 mg QHS JIE Administration Torsemide 20 mg 01/16/19 22:00 01/22/19 09:43 Demadex PO 20 mg BID JIE Administration Tramadol HCl 50 mg 01/16/19 12:44 01/20/19 15:19 Ultram PO 50 mg PRN PRN Administration Pain Zolpidem Tartrate 10 mg 01/16/19 22:00 01/21/19 22:16 Ambien PO 10 mg QHS JIE Administration
[2019-01-22] MEDS: HumaLOG SUB-Q SCH ×3 (13:21→21:47)
--- NOTE | 2019-01-22 15:16 | Progress Note ---
Assessment and Plan Assessment and plan: Acute/subacute CVA. Continue CVA protocol. MRI reveals 5 mm subacute lacunar infarct in the left citlalli. Echocardiogram reveals mild concentric left ventricular hypertrophy with an EF of 50-55%. No reports of thrombus. Neurology following. Continue secondary prevention. Currently with aspirin and statin Metabolic encephalopathy. Patient had hypoglycemia is sedated and intubated with D50, but blood sugar is stable after that Hypertension. Continue antihypertensive medications. Diabetes mellitus type 2. Continue Accu-Cheks and sliding scale as well. Anemia of CKD. Current hemoglobin levels are at goal. There is no acute needs for NED therapy at this time. We'll continue to monitor Disposition. Awaiting placement. History Interval history: Patient was seen and evaluated this morning, patient has right-sided weakness. Hospitalist Physical - Physical exam Narrative exam: Not in cardiopulmonary distress. The patient appeared well nourished and normally developed. Vital signs as documented. Head exam is unremarkable. No scleral icterus . Neck is without jugular venous distension, thyromegaly, or carotid bruits. Lungs are clear to auscultation. Cardiac exam reveals regular rate and Rhythm. Abdominal exam reveals normal bowel sounds. Extremities are nonedematous and both femoral and pedal pulses are normal. [employer]: Alert and oriented 3. Right-sided hemiplegia. - Constitutional Vitals: Temp Pulse Resp BP Pulse Ox 98.3 F 67 19 118/59 97 01/22/19 08:55 01/22/19 09:42 01/22/19 09:05 01/22/19 09:42 01/22/19 09:05 General appearance: Present: no acute distress, well-nourished Results - Labs CBC & Chem 7: 01/14/19 19:16 01/21/19 12:04 Labs: Laboratory Last Values WBC 7.3 K/mm3 (4.5-11.0) 01/14/19 19:16 RBC 4.01 M/mm3 (3.65-5.03) 01/14/19 19:16 Hgb 11.4 gm/dl (11.8-15.2) L 01/14/19 19:16 Hct 34.8 % (35.5-45.6) L 01/14/19 19:16 MCV 87 fl (84-94) 01/14/19 19:16 MCH 28 pg (28-32) 01/14/19 19:16 MCHC 33 % (32-34) 01/14/19 19:16 RDW 15.4 % (13.2-15.2) H 01/14/19 19:16 Plt Count 170 K/mm3 (140-440) 01/14/19 19:16 Lymph % (Auto) 16.6 % (13.4-35.0) 01/14/19 19:16 [place] % (Auto) 8.7 % (0.0-7.3) H 01/14/19 19:16 Eos % (Auto) 3.2 % (0.0-4.3) 01/14/19 19:16 Baso % (Auto) 1.5 % (0.0-1.8) 01/14/19 19:16 Lymph # 1.2 K/mm3 (1.2-5.4) 01/14/19 19:16 [place] # 0.6 K/mm3 (0.0-0.8) 01/14/19 19:16 Eos # 0.2 K/mm3 (0.0-0.4) 01/14/19 19:16 Baso # 0.1 K/mm3 (0.0-0.1) 01/14/19 19:16 Seg Neutrophils % 70.0 % (40.0-70.0) 01/14/19 19:16 Seg Neutrophils # 5.1 K/mm3 (1.8-7.7) 01/14/19 19:16 PT 13.6 Sec. (12.2-14.9) 01/14/19 21:09 INR 0.98 (0.87-1.13) 01/14/19 21:09 APTT 31.9 Sec. (24.2-36.6) 01/14/19 21:09 Thrombin Time 16.1 Sec. (15.1-19.6) 01/14/19 21:09 Sodium 141 mmol/L (137-145) 01/14/19 19:16 Potassium 3.9 mmol/L (3.6-5.0) 01/14/19 19:16 Chloride 97.9 mmol/L (98-107) L 01/14/19 19:16 Carbon Dioxide 30 mmol/L (22-30) 03/18/19 19:16 Anion Gap 17 mmol/L 01/14/19 19:16 BUN 19 mg/dL (9-20) 01/14/19 19:16 Creatinine 5.2 mg/dL (0.8-1.5) H 01/14/19 19:16 Estimated GFR 11 ml/min 01/14/19 19:16 BUN/Creatinine Ratio 4 % 01/14/19 19:16 Glucose 131 mg/dL (75-100) H 01/21/19 12:04 POC Glucose 132 (70-105) H 01/22/19 12:51 Calcium 9.2 mg/dL (8.4-10.2) 01/14/19 19:16 Triglycerides 107 mg/dL (2-149) 01/16/19 07:35 Cholesterol 142 mg/dL (50-199) 01/16/19 07:35 LDL Cholesterol Direct 85 mg/dL (50-130) 01/16/19 07:35 HDL Cholesterol 42 mg/dL (40-59) 01/16/19 07:35 Cholesterol/HDL Ratio 3.38 % 01/16/19 07:35 Hepatitis A IgM Ab Non-reactive (NonReactive) 01/18/19 14:47 Hep Bs Antigen Non-reactive (Negative) 01/18/19 14:47 Hep B Core IgM Ab Non-reactive (NonReactive) 01/18/19 14:47 Hepatitis C Antibody Non-reactive (NonReactive) 01/18/19 14:47 Active Medications - Current Medications Current Medications: Generic Name Dose Route Start Last Admin Trade Name Freq PRN Reason Stop Dose Admin Acetaminophen 650 mg 01/15/19 04:11 01/19/19 22:43 Tylenol PO 650 mg Q4H PRN Administration Pain, Mild (1-3) Alprazolam 1 mg 01/16/19 22:00 01/21/19 22:16 Xanax PO Not Given HS JIE Aspirin 325 mg 01/15/19 10:00 01/22/19 09:40 Aspirin PO 325 mg QDAY JIE Administration Calcium Carbonate/Glycine 500 mg 01/17/19 10:00 01/22/19 09:40 Oscal PO 500 mg DAILY JIE Administration Clopidogrel Bisulfate 75 mg 01/17/19 10:00 01/22/19 09:43 Plavix PO 75 mg DAILY JIE Administration Dextrose 50 ml 03/26/19 09:16 D50w (25gm) Syringe IV PRN PRN Hypoglycemia Ergocalciferol 50,000 unit 01/17/19 10:00 01/22/19 09:44 Vitamin D2 PO 50,000 unit Th JIE Administration Glimepiride 2 mg 01/17/19 10:00 01/22/19 09:43 Amaryl PO 2 mg DAILY JIE Administration Hydralazine HCl 5 mg 01/16/19 06:07 01/22/19 04:20 Apresoline IV 5 mg Q6HR PRN Administration SBP > 160 Hydralazine HCl 50 mg 01/17/19 12:00 01/22/19 09:41 Apresoline PO 50 mg BID JIE Administration Sodium Chloride 100 mls @ 999 mls/hr 01/18/19 09:00 Nacl 0.9% IV EVERARDO PRN Hypotension Dextrose/Sodium Chloride 1,000 mls @ 75 mls/hr 01/21/19 16:00 01/21/19 15:45 D5/0.45ns IV 75 mls/hr DIRECT JIE Administration Insulin Human Lispro 0 unit 01/22/19 11:30 01/22/19 13:21 Humalog SUB-Q Not Given ACHS JIE Protocol Labetalol HCl 300 mg 01/16/19 22:00 01/22/19 09:42 Normodyne PO 300 mg BID JIE Administration Loratadine 10 mg 01/20/19 11:00 01/22/19 09:43 Claritin PO 10 mg DAILY JIE Administration Metolazone 2.5 mg 01/16/19 14:00 01/22/19 14:16 Zaroxolyn PO 2.5 mg TID JIE Administration Ondansetron HCl 4 mg 01/15/19 04:11 Zofran IV Q8H PRN Nausea And Vomiting Pantoprazole Sodium 20 mg 01/16/19 22:00 01/22/19 09:43 Protonix PO 20 mg BID JIE Administration Pravastatin Sodium 40 mg 01/15/19 13:00 01/21/19 22:16 Pravachol PO 40 mg QHS JIE Administration Torsemide 20 mg 01/16/19 22:00 01/22/19 09:43 Demadex PO 20 mg BID JIE Administration Tramadol HCl 50 mg 01/16/19 12:44 01/20/19 15:19 Ultram PO 50 mg PRN PRN Administration Pain Zolpidem Tartrate 10 mg 01/16/19 22:00 01/21/19 22:16 Ambien PO 10 mg QHS JIE Administration
[2019-01-22] MEDS: PRAVACHOL PO SCH (21:46)
[2019-01-22] MEDS: XANAX PO SCH (21:47)
[2019-01-22] MEDS: AMBIEN PO SCH (22:41)
[2019-01-22] MEDS: TYLENOL PO PRN (23:45)
[2019-01-23] MEDS: HumaLOG SUB-Q SCH ×4 (07:30→22:55)
[2019-01-23] MEDS: ASPIRIN PO SCH (09:38)
[2019-01-23] MEDS: PLAVIX PO SCH (09:39)
[2019-01-23] MEDS: ZAROXOLYN PO SCH ×3 (09:39→22:45)
[2019-01-23] MEDS: CLARITIN PO SCH (09:39)
[2019-01-23] MEDS: DEMADEX PO SCH ×2 (09:39→22:55)
[2019-01-23] MEDS: AMARYL PO SCH (09:39)
[2019-01-23] MEDS: OSCAL PO SCH (09:39)
[2019-01-23] MEDS: NORMODYNE PO SCH ×2 (10:41→22:55)
[2019-01-23] MEDS: PROTONIX PO SCH ×2 (10:41→22:55)
[2019-01-23] MEDS: APRESOLINE PO SCH ×2 (10:41→22:55)
--- NOTE | 2019-01-23 11:15 | Progress Note ---
Assessment and Plan - Patient Problems (1) ESRD (end stage renal disease) on dialysis Current Visit: Yes Status: Chronic Plan to address problem: Cont HD on Monday and Monday hemodialysis schedule. (2) Right sided weakness Current Visit: Yes Status: Acute Plan to address problem: CT scan of the head as well as CT scan of the C-spine noted. Echocardiogram was done this morning and report reviewed. MRI of the brain indicated a subacute infarct in the left citlalli. PT ongoing (3) HTN (hypertension) Current Visit: Yes Status: Chronic Plan to address problem: BP improved after addint hydralazine 50 mg BID to his current regimen and will continue to monitor. (4) Anemia in CKD (chronic kidney disease) Current Visit: Yes Status: Chronic Qualifiers: Chronic kidney disease stage: on chronic dialysis Qualified Code(s): N18.6 - End stage renal disease; D63.1 - Anemia in chronic kidney disease; Z99.2 - Dependence on renal dialysis Plan to address problem: Current hemoglobin levels are at goal. There is no acute needs for NED therapy at this time. We'll continue to m (5) Type II diabetes mellitus Current Visit: Yes Status: Chronic Plan to address problem: Diabetes management per primary team (6) Secondary hyperparathyroidism (of renal origin) Current Visit: Yes Status: Chronic Plan to address problem: continue home phosphate binder regimen. Subjective Date of service: 01/23/19 Principal diagnosis: ESRD Interval history: pt awake, alert, in NAD Objective - Vital Signs Vital signs: Vital Signs - 12hr 01/23/19 01/23/19 01/23/19 01:38 05:43 05:50 Temperature 98.1 F 97.9 F 97.3 F L Pulse Rate 71 67 63 Respiratory 18 18 18 Rate Blood Pressure 159/70 139/79 Blood Pressure 165/60 [Right] O2 Sat by Pulse 96 96 95 Oximetry - General Appearance General appearance: well-developed, well-nourished, appears stated age EENT: ATNC, mucous membranes moist Neck: no JVD Respiratory: Present: Clear to Ascultation Cardiology: regular, S1S2 Gastrointestinal: normoactive bowel sounds Integumentary: no rash Neurologic: no focal deficit, alert and oriented x3, strength 5/5, CN 3-12 intact Psychiatric: mood/affect appropriate, cooperative - Lab 01/14/19 19:16 01/21/19 12:04 Most recent lab results Calcium 9.2 mg/dL (8.4-10.2) 01/14/19 19:16 Medications & Allergies - Medications Allergies/Adverse Reactions: Allergies No Known Allergies Allergy (Verified 11/12/13 07:33) Home Medications: Home Medications Medication Instructions Recorded Confirmed Last Taken Type Clopidogrel Bisulfate [Plavix] 75 mg PO DAILY 11/11/13 01/16/19 3 Days Ago History ~01/13/19 Glimepiride 2 mg PO DAILY 11/11/13 01/16/19 3 Days Ago History ~01/13/19 Simvastatin 20 mg PO DAILY 11/11/13 01/16/19 3 Days Ago History ~01/13/19 Torsemide 20 mg PO BID 11/11/13 01/16/19 3 Days Ago History ~01/13/19 Tramadol HCl 50 mg PO PRN PRN 11/11/13 01/16/19 3 Days Ago History ~01/13/19 metOLazone [Metolazone] 2.5 mg PO TID 11/11/13 01/16/19 3 Days Ago History ~01/13/19 Labetalol HCl [Trandate TAB] 300 mg PO BID 12/16/13 01/16/19 3 Days Ago History ~01/13/19 Albuterol Sulfate [Proair Hfa] 2 puff INHALATION QID 12/18/13 01/16/19 1 Day Ago History ~01/15/19 Ergocalciferol [Vitamin D2] 50,000 unit PO 2XW 12/18/13 01/16/19 3 Days Ago History ~01/13/19 Omeprazole 20 mg PO BID 12/18/13 01/16/19 3 Days Ago History ~01/13/19 ALPRAZolam [Xanax] 1 mg PO HS 01/15/19 01/16/19 3 Days Ago History ~01/13/19 Calcium Carbonate 500 mg PO DAILY 01/15/19 01/16/19 3 Days Ago History ~01/13/19 Clopidogrel [Plavix] 75 mg PO DAILY 01/15/19 01/16/19 3 Days Ago History ~01/13/19 Zolpidem [Ambien] 10 mg PO QHS 01/15/19 01/16/19 3 Days Ago History ~01/13/19 Active Medications: Generic Name Dose Route Start Last Admin Trade Name Freq PRN Reason Stop Dose Admin Acetaminophen 650 mg 01/15/19 04:11 01/22/19 23:45 Tylenol PO 650 mg Q4H PRN Administration Pain, Mild (1-3) Alprazolam 1 mg 01/16/19 22:00 01/22/19 21:47 Xanax PO Not Given HS JIE Aspirin 325 mg 01/15/19 10:00 01/23/19 09:38 Aspirin PO 325 mg QDAY JIE Administration Calcium Carbonate/Glycine 500 mg 01/17/19 10:00 01/23/19 09:39 Oscal PO 500 mg DAILY JIE Administration Clopidogrel Bisulfate 75 mg 01/17/19 10:00 01/23/19 09:39 Plavix PO 75 mg DAILY JIE Administration Dextrose 50 ml 01/22/19 09:16 D50w (25gm) Syringe IV PRN PRN Hypoglycemia Ergocalciferol 50,000 unit 01/17/19 10:00 01/22/19 09:44 Vitamin D2 PO 50,000 unit Th JIE Administration Glimepiride 2 mg 01/17/19 10:00 01/23/19 09:39 Amaryl PO 2 mg DAILY JIE Administration Hydralazine HCl 5 mg 01/16/19 06:07 01/22/19 04:20 Apresoline IV 5 mg Q6HR PRN Administration SBP > 160 Hydralazine HCl 50 mg 01/17/19 12:00 01/23/19 10:41 Apresoline PO 50 mg BID JIE Administration Sodium Chloride 100 mls @ 999 mls/hr 01/18/19 09:00 Nacl 0.9% IV EVERARDO PRN Hypotension Dextrose/Sodium Chloride 1,000 mls @ 75 mls/hr 01/21/19 16:00 01/21/19 15:45 D5/0.45ns IV 75 mls/hr DIRECT JIE Administration Insulin Human Lispro 0 unit 01/22/19 11:30 01/23/19 07:30 Humalog SUB-Q Not Given ACHS [facility] Protocol Labetalol HCl 300 mg 01/16/19 22:00 01/23/19 10:41 Normodyne PO 300 mg BID JIE Administration Loratadine 10 mg 01/20/19 11:00 01/23/19 09:39 Claritin PO 10 mg DAILY JIE Administration Metolazone 2.5 mg 01/16/19 14:00 01/23/19 09:39 Zaroxolyn PO 2.5 mg TID JIE Administration Ondansetron HCl 4 mg 01/15/19 04:11 Zofran IV Q8H PRN Nausea And Vomiting Pantoprazole Sodium 20 mg 01/16/19 22:00 01/23/19 10:41 Protonix PO 20 mg BID JIE Administration Pravastatin Sodium 40 mg 01/15/19 13:00 01/22/19 21:46 Pravachol PO 40 mg QHS JIE Administration Torsemide 20 mg 01/16/19 22:00 01/23/19 09:39 Demadex PO 20 mg BID JIE Administration Tramadol HCl 50 mg 01/16/19 12:44 01/20/19 15:19 Ultram PO 50 mg PRN PRN Administration Pain Zolpidem Tartrate 10 mg 01/16/19 22:00 01/22/19 22:41 Ambien PO 10 mg QHS JIE Administration
--- NOTE | 2019-01-23 15:54 | Progress Note ---
Assessment and Plan Assessment and plan: Acute/subacute CVA. Continue CVA protocol. MRI reveals 5 mm subacute lacunar infarct in the left citlalli. Echocardiogram reveals mild concentric left ventricular hypertrophy with an EF of 50-55%. No reports of thrombus. Neurology following. Continue secondary prevention. Currently with aspirin and statin Metabolic encephalopathy. Patient had hypoglycemia is sedated and intubated with D50, but blood sugar is stable after that Hypertension. Continue antihypertensive medications. Diabetes mellitus type 2. Continue Accu-Cheks and sliding scale as well. Anemia of CKD. Current hemoglobin levels are at goal. There is no acute needs for NED therapy at this time. We'll continue to monitor Disposition. Awaiting placement. Will be discharged tomorrow. History Interval history: Patient was seen and evaluated this morning, patient has right-sided weakness. Hospitalist Physical - Physical exam Narrative exam: Not in cardiopulmonary distress. The patient appeared well nourished and normally developed. Vital signs as documented. Head exam is unremarkable. No scleral icterus . Neck is without jugular venous distension, thyromegaly, or carotid bruits. Lungs are clear to auscultation. Cardiac exam reveals regular rate and Rhythm. Abdominal exam reveals normal bowel sounds. Extremities are nonedematous and both femoral and pedal pulses are normal. [employer] MAORI: Alert and oriented 3. Right-sided hemiplegia. - Constitutional Vitals: Temp Pulse Resp BP Pulse Ox 98.6 F 64 18 157/61 99 01/23/19 08:37 01/23/19 11:59 01/23/19 08:37 01/23/19 11:59 01/23/19 11:59 General appearance: Present: no acute distress, well-nourished Results - Labs CBC & Chem 7: 01/14/19 19:16 01/21/19 12:04 Labs: Laboratory Last Values WBC 7.3 K/mm3 (4.5-11.0) 01/14/19 19:16 RBC 4.01 M/mm3 (3.65-5.03) 01/14/19 19:16 Hgb 11.4 gm/dl (11.8-15.2) L 01/14/19 19:16 Hct 34.8 % (35.5-45.6) L 01/14/19 19:16 MCV 87 fl (84-94) 01/14/19 19:16 MCH 28 pg (28-32) 01/14/19 19:16 MCHC 33 % (32-34) 01/14/19 19:16 RDW 15.4 % (13.2-15.2) H 01/14/19 19:16 Plt Count 170 K/mm3 (140-440) 01/14/19 19:16 Lymph % (Auto) 16.6 % (13.4-35.0) 01/14/19 19:16 Randall % (Auto) 8.7 % (0.0-7.3) H 01/14/19 19:16 Eos % (Auto) 3.2 % (0.0-4.3) 01/14/19 19:16 Baso % (Auto) 1.5 % (0.0-1.8) 01/14/19 19:16 Lymph # 1.2 K/mm3 (1.2-5.4) 01/14/19 19:16 Randall # 0.6 K/mm3 (0.0-0.8) 01/14/19 19:16 Eos # 0.2 K/mm3 (0.0-0.4) 01/14/19 19:16 Baso # 0.1 K/mm3 (0.0-0.1) 01/14/19 19:16 Seg Neutrophils % 70.0 % (40.0-70.0) 01/14/19 19:16 Seg Neutrophils # 5.1 K/mm3 (1.8-7.7) 01/14/19 19:16 PT 13.6 Sec. (12.2-14.9) 01/14/19 21:09 INR 0.98 (0.87-1.13) 01/14/19 21:09 APTT 31.9 Sec. (24.2-36.6) 01/14/19 21:09 Thrombin Time 16.1 Sec. (15.1-19.6) 01/14/19 21:09 Sodium 141 mmol/L (137-145) 01/14/19 19:16 Potassium 3.9 mmol/L (3.6-5.0) 01/14/19 19:16 Chloride 97.9 mmol/L (98-107) L 01/14/19 19:16 Carbon Dioxide 30 mmol/L (22-30) 01/14/19 19:16 Anion Gap 17 mmol/L 01/14/19 19:16 BUN 19 mg/dL (9-20) 01/14/19 19:16 Creatinine 5.2 mg/dL (0.8-1.5) H 01/14/19 19:16 Estimated GFR 11 ml/min 01/14/19 19:16 BUN/Creatinine Ratio 4 % 01/14/19 19:16 Glucose 131 mg/dL (75-100) H 01/21/19 12:04 POC Glucose 104 (70-105) 01/23/19 12:01 Calcium 9.2 mg/dL (8.4-10.2) 01/14/19 19:16 Triglycerides 107 mg/dL (2-149) 01/16/19 07:35 Cholesterol 142 mg/dL (50-199) 01/16/19 07:35 LDL Cholesterol Direct 85 mg/dL (50-130) 01/16/19 07:35 HDL Cholesterol 42 mg/dL (40-59) 01/16/19 07:35 Cholesterol/HDL Ratio 3.38 % 01/16/19 07:35 Hepatitis A IgM Ab Non-reactive (NonReactive) 01/18/19 14:47 Hep Bs Antigen Non-reactive (Negative) 01/18/19 14:47 Hep B Core IgM Ab Non-reactive (NonReactive) 01/18/19 14:47 Hepatitis C Antibody Non-reactive (NonReactive) 01/18/19 14:47 Active Medications - Current Medications Current Medications: Generic Name Dose Route Start Last Admin Trade Name Freq PRN Reason Stop Dose Admin Acetaminophen 650 mg 01/15/19 04:11 01/22/19 23:45 Tylenol PO 650 mg Q4H PRN Administration Pain, Mild (1-3) Alprazolam 1 mg 01/16/19 22:00 01/22/19 21:47 Xanax PO Not Given HS JIE Aspirin 325 mg 01/15/19 10:00 01/23/19 09:38 Aspirin PO 325 mg QDAY JIE Administration Calcium Carbonate/Glycine 500 mg 01/17/19 10:00 01/23/19 09:39 Oscal PO 500 mg DAILY JIE Administration Clopidogrel Bisulfate 75 mg 01/17/19 10:00 01/23/19 09:39 Plavix PO 75 mg DAILY JIE Administration Dextrose 50 ml 01/22/19 09:16 D50w (25gm) Syringe IV PRN PRN Hypoglycemia Ergocalciferol 50,000 unit 01/17/19 10:00 01/22/19 09:44 Vitamin D2 PO 50,000 unit Th JIE Administration Glimepiride 2 mg 01/17/19 10:00 01/23/19 09:39 Amaryl PO 2 mg DAILY JIE Administration Hydralazine HCl 5 mg 01/16/19 06:07 01/22/19 04:20 Apresoline IV 5 mg Q6HR PRN Administration SBP > 160 Hydralazine HCl 50 mg 01/17/19 12:00 01/23/19 10:41 Apresoline PO 50 mg BID JIE Administration Sodium Chloride 100 mls @ 999 mls/hr 01/18/19 09:00 Nacl 0.9% IV EVERARDO PRN Hypotension Dextrose/Sodium Chloride 1,000 mls @ 75 mls/hr 01/21/19 16:00 01/21/19 15:45 D5/0.45ns IV 75 mls/hr DIRECT JIE Administration Insulin Human Lispro 0 unit 01/22/19 11:30 01/23/19 07:30 Humalog SUB-Q Not Given ACHS [facility] Protocol Labetalol HCl 300 mg 01/16/19 22:00 01/23/19 10:41 Normodyne PO 300 mg BID JIE Administration Loratadine 10 mg 01/20/19 11:00 01/23/19 09:39 Claritin PO 10 mg DAILY JIE Administration Metolazone 2.5 mg 01/16/19 14:00 01/23/19 09:39 Zaroxolyn PO 2.5 mg TID JIE Administration Ondansetron HCl 4 mg 01/15/19 04:11 Zofran IV Q8H PRN Nausea And Vomiting Pantoprazole Sodium 20 mg 01/16/19 22:00 01/23/19 10:41 Protonix PO 20 mg BID JIE Administration Pravastatin Sodium 40 mg 01/15/19 13:00 01/22/19 21:46 Pravachol PO 40 mg QHS JIE Administration Torsemide 20 mg 01/16/19 22:00 01/23/19 09:39 Demadex PO 20 mg BID JIE Administration Tramadol HCl 50 mg 01/16/19 12:44 01/20/19 15:19 Ultram PO 50 mg PRN PRN Administration Pain Zolpidem Tartrate 10 mg 01/16/19 22:00 01/22/19 22:41 Ambien PO 10 mg QHS JIE Administration Nutrition/Malnutrition Assess - Dietary Evaluation Nutrition/Malnutrition Findings: Nutrition Notes Start: 01/22/19 15:17 Freq: Status: Active Protocol: Document 01/22/19 15:17 RD (Rec: 01/22/19 15:22 RD [email or web address]) Co-Sign 01/22/19 15:17 LP Nutrition Notes Need for Assessment generated from: LOS Initial or Follow up Brief Note Current Diagnosis Diabetes,Hypertension,Heart Failure Other Pertinent Diagnosis Blindness, ESRD on dialysis, encephalopathy Current Diet Cardiac/Consistent CHO Subjective/Other Information RD screen for LOS. Pt asleep at time of visit. Recorded intakes average 83%. Nutrition Intervention Revisit per MD consult or patient Sign Off request:
[2019-01-23] MEDS: XANAX PO SCH (22:55)
[2019-01-23] MEDS: PRAVACHOL PO SCH (22:55)
[2019-01-23] MEDS: AMBIEN PO SCH (23:05)
[2019-01-24] MEDS: HumaLOG SUB-Q SCH ×2 (09:02→12:51)
[2019-01-24] MEDS: CLARITIN PO SCH (09:55)
[2019-01-24] MEDS: OSCAL PO SCH (09:55)
[2019-01-24] MEDS: PROTONIX PO SCH (09:55)
[2019-01-24] MEDS: ASPIRIN PO SCH (09:55)
[2019-01-24] MEDS: AMARYL PO SCH (09:55)
[2019-01-24] MEDS: DEMADEX PO SCH (09:55)
[2019-01-24] MEDS: PLAVIX PO SCH (09:56)
[2019-01-24] MEDS: NORMODYNE PO SCH (09:56)
[2019-01-24] MEDS: APRESOLINE PO SCH (09:56)
[2019-01-24] MEDS: ZAROXOLYN PO SCH ×2 (10:00→14:30)
[2019-01-24] MEDS: VITAMIN D2 PO SCH (10:02)
--- NOTE | 2019-01-24 10:48 | Discharge Summary ---
Providers - Providers Date of Admission: 01/15/19 02:06 Attending physician: ELLIOT REECE MD 01/15/19 00:31 Consult to Physician [CONS] Urgent Comment: Consulting Provider: KAYLENE REYNOSO Physician Instructions: Reason For Exam: esrd on dialysis 01/15/19 06:00 Consult to Physician [CONS] Routine Comment: Consulting Provider: ADRIANA ADLER Physician Instructions: Reason For Exam: RIGHT SIDED WEAKNESS Physical Therapy Evaluation and Treat [CONS] Routine Comment: Reason For Exam: RIGHT SIDED WEAKNESS 01/15/19 13:27 Speech Therapy Evaluation and Treat [CONS] Routine Reason For Exam: possible CVA 01/15/19 14:06 Occupational Therapy Evaluate and Treat [CONS] Urgent Comment: 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 Continue CVA protocol. MRI reveals 5 mm subacute lacunar infarct in the left citlalli. Echocardiogram reveals mild concentric left ventricular hypertrophy with an EF of 50-55%. No reports of thrombus. Neurology following. Continue secondary prevention. Currently with aspirin and statin Metabolic encephalopathy; resolved. Patient had hypoglycemia episode and was treated with D50, but blood sugar is stable after that. Hypertension. Continue antihypertensive medications. Diabetes mellitus type 2. contineue home medication. Anemia of CKD. Current hemoglobin levels are at goal. patient was hemodynamically stable and discharged to SNF. Appropriate medication scripts were given. Disposition: [id number]/[id number] SNF [facility] Time spent for discharge: 32 minutes - Discharge Diagnoses (1) Right sided weakness Status: Acute (2) ESRD (end stage renal disease) on dialysis Status: Chronic (3) HTN (hypertension) Status: Chronic (4) Secondary hyperparathyroidism (of renal origin) Status: Chronic (5) Type II diabetes mellitus Status: Chronic Core Measure Documentation - Palliative Care Palliative Care/ Comfort Measures: Not Applicable - Core Measures Any of the following diagnoses?: stroke - Stroke Discharge Requirements Statin for LDL = or >70 mg/dl on DC: Yes Anticoag for atrial fib/atrial flutter: Not Applicable Antithrombotic for ischemic stroke: Yes Exam - Physical Exam Narrative exam: Not in cardiopulmonary distress. The patient appeared well nourished and normally developed. Vital signs as documented. Head exam is unremarkable. No scleral icterus . Neck is without jugular venous distension, thyromegaly, or carotid bruits. Lungs are clear to auscultation. Cardiac exam reveals regular rate and Rhythm. Abdominal exam reveals normal bowel sounds. Extremities are nonedematous and both femoral and pedal pulses are normal. [employer]: Alert and oriented 3. Right-sided hemiplegia. - Constitutional Vitals: Temp Pulse Resp BP Pulse Ox 98.4 F 71 18 195/83 100 01/24/19 08:41 01/24/19 09:56 01/24/19 08:41 01/24/19 09:56 01/24/19 08:41 Plan Activity: advance as tolerated Weight Bearing Status: Weight Bear as Tolerated Diet: low cholesterol, low salt, diabetic, renal Follow up with: FLORY TRIPLETT MD [Primary Care Provider] - 7 Days Prescriptions: AtorvaSTATin [Lipitor] 40 mg PO QHS #30 tab
[2019-01-24 11:20] VITALS: BP 178/75
== END 2019-01-24 15:26 | DRG 64 ==
LOC: ED 17:10 → 4A 01-15 02:06
PROVIDERS: ADMIT Internal Medicine; ATTEND Internal Medicine
PROC: 5A1D70Z Performance of Urinary Filtration, Intermittent, Less than 6 Hours Per Day (ICD-10-PCS; principal; 2019-01-18)
PROC: 5A1D70Z Performance of Urinary Filtration, Intermittent, Less than 6 Hours Per Day (ICD-10-PCS; 2019-01-21)
DX: I63.81 Other cerebral infarction due to occlusion or stenosis of small artery (principal); N18.6 End stage renal disease; G93.41 Metabolic encephalopathy; N25.81 Secondary hyperparathyroidism of renal origin; G81.91 Hemiplegia, unspecified affecting right dominant side; I13.2 Hypertensive heart and chronic kidney disease with heart failure and with stage 5 chronic kidney disease, or end stage renal disease; D63.1 Anemia in chronic kidney disease; I50.9 Heart failure, unspecified; R29.701 NIHSS score 1; E11.649 Type 2 diabetes mellitus with hypoglycemia without coma; H54.8 Legal blindness, as defined in USA; E11.22 Type 2 diabetes mellitus with diabetic chronic kidney disease; Z99.2 Dependence on renal dialysis; Z86.73 Personal history of transient ischemic attack (TIA), and cerebral infarction without residual deficits; Z95.828 Presence of other vascular implants and grafts; Z83.3 Family history of diabetes mellitus; Z82.49 Family history of ischemic heart disease and other diseases of the circulatory system; Z79.01 Long term (current) use of anticoagulants; Z79.51 Long term (current) use of inhaled steroids; Z79.899 Other long term (current) drug therapy; Z79.84 Long term (current) use of oral hypoglycemic drugs
CPT/HCPCS: 36415; 70450; 70551; 72125; 80048; 80061; 80074; 82947; 82962; 85025; 85610; 85670; 85730; 93005; 93010; 93306; 93880; 96374; 99285; G0378; A9270-GY; J0360; J7030